=== PATIENT | female | born 1965 | race Caucasian/White ===

== ENCOUNTER 2016-05-28 17:35 | Inpatient (IN) ==
--- NOTE | 2016-05-28 17:47 | Emergency Department Note ---
Disposition Clinical Impression: Vomiting, Acute kidney injury, Anemia, Hypocalcemia, Hypomagnesemia, Obesity, Hyperkalemia, Thrombocytopenia, Pancytopenia Disposition: Admitted As Inpatient Referrals: NO,PCP [Non-Partnered Physician] - Forms: ED Satisfaction Letter General Adult HPI - General Chief complaint: ED Weakness Stated complaint: Dehydrated/hypotension Time Seen by Provider: 05/28/16 17:47 Source: patient Limitations: no limitations - History of Present Illness HPI Narrative: 50-year-old female reports emergency department concerned with recurrent vomiting and possible dehydration. The patient states she has had recurrent emesis for about a month. She has felt weak. The patient reports she had a gastric bypass many years ago. Her blood pressure was measured in the 70s systolic yesterday and down in the 40s diastolic per report. The patient is not fallen or had a cecil syncopal event. She denies any chest pain or shortness of breath no abdominal pain, the patient reports some bloody stool and emesis. The patient is currently not anticoagulated. There is no history of fever. No acute back pain reported. There has been no trouble moving the arms or legs independently. She reports she has a history of leg swelling. She has a known coronary stent, but denies diuretic therapy currently, she reports she had an element of renal failure and was told to discontinue her erratic. She reports her diabetes is now well controlled status post gastric bypass. There is no history of convulsion or confusion or difficulty moving the arms or legs independently. No dysarthria. The patient does describe significant anxiety. Pain Scale: 8 - Related Data Home Medications Medication Instructions Recorded Confirmed Actos 06/14/15 Allopurinol 06/14/15 Amitriptyline 06/14/15 Atenolol 06/14/15 Calcium + D Soft Chewable Tab 06/14/15 Iron Supplement 06/14/15 Lipitor 06/14/15 Lisinopril 06/14/15 Lyrica 06/14/15 Magnesium Citrate 06/14/15 06/14/15 Metformin 06/14/15 Nucynta 06/14/15 Requip 06/14/15 Vitamin C 06/14/15 Vitamin D 06/14/15 Previous Rx's Medication Instructions Recorded Ciprofloxacin [Cipro] 500 mg PO BID 7 Days 06/14/15 Phenazopyridine HCl [Pyridium] 200 mg PO TID 2 Days 06/14/15 Cyclobenzaprine [Flexeril] 10 mg PO TID #30 tablet 08/06/15 Ibuprofen [Motrin] 600 mg PO TID PRN #30 tab 08/06/15 Ciprofloxacin [Cipro] 500 mg PO BID #14 tablet 08/18/15 TraMADol [Ultram] 50 mg PO Q8HR PRN #10 tablet 08/18/15 Cephalexin [Keflex] 500 mg PO QID #40 capsule 01/06/16 Fluconazole [Diflucan] 50 mg PO ONCE #1 tablet 01/06/16 Olopatadine HCl [Patanol] 1 drop BOTH EYES BID PRN #1 unit 01/06/16 Phenazopyridine [Pyridium] 100 mg PO TID PRN #30 tablet 01/06/16 Promethazine/Dextromethorphan 5 ml PO Q4H PRN #120 ml 01/06/16 [Promethazine-Dm Syrup] Cefixime [Suprax] 400 mg PO DAILY #7 capsule 01/25/16 Ciprofloxacin HCl [Cipro] 500 mg PO BID #14 tablet 04/30/16 Allergies Allergy/AdvReac Type Severity Reaction Status Date / Time latex Allergy Rash Verified 12/10/14 16:45 Sulfa (Sulfonamide Allergy Anaphylaxis Verified 12/10/14 16:45 Antibiotics) All systems ED: reviewed and negative except as stated. Past Medical History - Past Medical History Medical history: Reports: diabetes, GERD, hypertension, other Surgical history: Reports: angioplasty/stent, appendectomy, , cholecystectomy, hysterectomy Psychiatric history: Reports: anxiety, depression - Social History Smoking Status: Never smoker Smokeless Tobacco Status: No Alcohol use: Reports: none Drug use: Reports: none Physical Exam - General Limitations: no limitations General appearance: alert - Head Head exam: atraumatic, normocephalic, normal inspection - Eye Eye exam: Present: normal appearance, PERRL, EOMI - ENT ENT exam: normal exam, normal oropharynx, mucous membranes moist, TM's normal bilaterally, normal external ear exam - Neck Neck exam: Present: normal inspection, full ROM, trachea midline - Chest Chest inspection: Present: symmetric chest wall rise. Absent: tenderness - Cardiovascular Cardiovascular exam: Present: regular rate, normal rhythm, normal heart sounds - Abdominal Exam Abdominal exam: Present: soft, Non-Tender, normal bowel sounds. Absent: tenderness, distention, guarding, rebound, rigidity, pulsatile mass - Extremities Exam Extremities exam: Present: normal inspection, full ROM, normal capillary refill , pedal edema. Absent: tenderness, joint swelling, calf tenderness - Expanded Lower Extremity Exam Upper leg exam: Present: full ROM Lower leg exam: Absent: Homans' sign Neurovascular/Tendon exam: Present: normal capillary refill. Absent: motor deficit, sensory deficit, tendon deficit, extremity cold to touch, pallor - Back Exam Back exam: Present: normal inspection, full ROM. Absent: tenderness, CVA tenderness (R), CVA tenderness (L), vertebral tenderness - Neurological Exam Neurological exam: Present: alert, oriented X3, CN II-XII intact. Absent: motor sensory deficit - Psychiatric Psychiatric exam: Present: normal affect, normal mood - Skin Skin exam: Present: warm, dry, intact, normal color. Absent: rash, cyanosis, diaphoresis, erythema, pallor, mottled Course Vital Signs Temperature 98.0 F 05/28/16 17:37 Pulse Rate 84 05/28/16 17:37 Respiratory Rate 16 05/28/16 17:37 Blood Pressure 120/80 05/28/16 17:37 O2 Sat by Pulse Oximetry 95 05/28/16 17:37 Temperature 98.0 F 05/28/16 17:37 Pulse Rate 80 05/28/16 19:35 Respiratory Rate 16 05/28/16 19:35 Blood Pressure 97/51 05/28/16 19:35 O2 Sat by Pulse Oximetry 94 05/28/16 19:35 Oxygen Delivery Oxygen Delivery Room Air Medical Decision Making - [facility] Narrative Medical decision making narrative: The patient is over 49, has had recurrent vomiting, is status post gastric bypass, she displays acute kidney injury as well as multiple electrolyte abnormalities. The patient also has significant anemia. She is weak and her blood pressure is low. She does not feel well enough to go home. Based on her age, presentation, hypotension, multiple comorbidities, acute kidney injury, multiple electrolyte abnormalities, I think it be appropriate to admit the patient to the hospital. I have consulted with the hospitalist on-call. - Lab Data Lab results reviewed: Yes I reviewed the patient's lab results. Result diagrams: 05/28/16 18:14 05/28/16 18:14 Lab Results 05/28/16 05/28/16 05/28/16 Range/Units 18:14 18:14 18:14 WBC 3.4 L (4.3-11.1) K/mcL RBC 2.41 L (3.82-4.97) M/mcL Hgb 8.0 L (11.5-15.4) g/dL Hct 25.4 L (35.3-44.9) % MCV 105.4 H (83.0-100.0) fL MCH 33.2 (28.0-33.3) pg MCHC 31.5 L (31.6-35.5) g/dL RDW 15.8 H (11.5-14.5) % Plt Count 104 L (140-400) K/mcL MPV 10.8 (9.4-12.4) fL Immature Gran % 0.3 (0-4) % Seg Neutrophils % 56.7 % Lymphocytes % 33.2 % Monocytes % 7.4 % Eosinophils % 1.5 % Basophils % 0.9 % Neutrophils # 1.9 (1.6-8.9) K/mcL Lymphocytes # 1.1 (0.6-4.6) K/mcL Monocytes # 0.3 (0.0-1.3) K/mcL Eosinophils # 0.1 (0.0-0.6) K/mcL Basophils # 0.0 (0.0-0.2) K/mcL Sodium 139 (136-145) mEq/L Potassium 4.8 H (3.5-4.5) mEq/L Chloride 111 H (98-109) mEq/L Carbon Dioxide 17 L (19-29) mEq/L BUN 40 H (7-20) mg/dL Creatinine 2.25 H (0.57-1.11) mg/dL Est GFR ( Amer) 28 L (> 60) Est GFR (Non-Af Amer) 23 L (> 60) BUN/Creatinine Ratio 18 (6-26) Glucose 75 (70-99) mg/dL Calculated Osmolality 296 (280-300) Lactic Acid 1.3 (0.5-2.2) mmol/L Calcium 7.5 L (8.6-10.8) mg/dL Phosphorus 5.2 H (2.3-4.7) mg/dL Magnesium 1.2 L (1.6-2.6) mg/dL Total Bilirubin (0.2-1.2) mg/dL Direct Bilirubin (0.0-0.5) mg/dL Indirect Bilirubin (0.0-1.2) mg/dL AST (5-34) Units/L ALT (0-55) Units/L Alkaline Phosphatase (38-126) Units/L Creatine Kinase 292 H (29-168) Units/L Troponin I (0-0.03) ng/mL C-Reactive Protein (Less than 5) mg/L B-Natriuretic Peptide (0-100) pg/mL Serum Total Protein (6.0-8.3) g/dL Albumin (3.5-5.0) g/dL Globulin (2.4-3.5) g/dL Albumin/Globulin Ratio (1.1-2.2) Lipase (8-78) Units/L TSH 1.879 (0.350-4.840) mcIU/mL 05/28/16 05/28/16 05/28/16 Range/Units 18:14 18:14 18:14 WBC (4.3-11.1) K/mcL RBC (3.82-4.97) M/mcL Hgb (11.5-15.4) g/dL Hct (35.3-44.9) % MCV (83.0-100.0) fL MCH (28.0-33.3) pg MCHC (31.6-35.5) g/dL RDW (11.5-14.5) % Plt Count (140-400) K/mcL MPV (9.4-12.4) fL Immature Gran % (0-4) % Seg Neutrophils % % Lymphocytes % % Monocytes % % Eosinophils % % Basophils % % Neutrophils # (1.6-8.9) K/mcL Lymphocytes # (0.6-4.6) K/mcL Monocytes # (0.0-1.3) K/mcL Eosinophils # (0.0-0.6) K/mcL Basophils # (0.0-0.2) K/mcL Sodium (136-145) mEq/L Potassium (3.5-4.5) mEq/L Chloride (98-109) mEq/L Carbon Dioxide (19-29) mEq/L BUN (7-20) mg/dL Creatinine (0.57-1.11) mg/dL Est GFR ( Amer) (> 60) Est GFR (Non-Af Amer) (> 60) BUN/Creatinine Ratio (6-26) Glucose (70-99) mg/dL Calculated Osmolality (280-300) Lactic Acid (0.5-2.2) mmol/L Calcium (8.6-10.8) mg/dL Phosphorus (2.3-4.7) mg/dL Magnesium (1.6-2.6) mg/dL Total Bilirubin 1.1 (0.2-1.2) mg/dL Direct Bilirubin 0.8 H (0.0-0.5) mg/dL Indirect Bilirubin 0.3 (0.0-1.2) mg/dL AST 38 H (5-34) Units/L ALT 22 (0-55) Units/L Alkaline Phosphatase 74 (38-126) Units/L Creatine Kinase (29-168) Units/L Troponin I 0.01 (0-0.03) ng/mL C-Reactive Protein 0 (Less than 5) mg/L B-Natriuretic Peptide (0-100) pg/mL Serum Total Protein 5.5 L (6.0-8.3) g/dL Albumin 2.4 L (3.5-5.0) g/dL Globulin 3.1 (2.4-3.5) g/dL Albumin/Globulin Ratio 0.8 L (1.1-2.2) Lipase 42 (8-78) Units/L TSH (0.350-4.840) mcIU/mL 05/28/16 Range/Units 18:14 WBC (4.3-11.1) K/mcL RBC (3.82-4.97) M/mcL Hgb (11.5-15.4) g/dL Hct (35.3-44.9) % MCV (83.0-100.0) fL MCH (28.0-33.3) pg MCHC (31.6-35.5) g/dL RDW (11.5-14.5) % Plt Count (140-400) K/mcL MPV (9.4-12.4) fL Immature Gran % (0-4) % Seg Neutrophils % % Lymphocytes % % Monocytes % % Eosinophils % % Basophils % % Neutrophils # (1.6-8.9) K/mcL Lymphocytes # (0.6-4.6) K/mcL Monocytes # (0.0-1.3) K/mcL Eosinophils # (0.0-0.6) K/mcL Basophils # (0.0-0.2) K/mcL Sodium (136-145) mEq/L Potassium (3.5-4.5) mEq/L Chloride (98-109) mEq/L Carbon Dioxide (19-29) mEq/L BUN (7-20) mg/dL Creatinine (0.57-1.11) mg/dL Est GFR ( Amer) (> 60) Est GFR (Non-Af Amer) (> 60) BUN/Creatinine Ratio (6-26) Glucose (70-99) mg/dL Calculated Osmolality (280-300) Lactic Acid (0.5-2.2) mmol/L Calcium (8.6-10.8) mg/dL Phosphorus (2.3-4.7) mg/dL Magnesium (1.6-2.6) mg/dL Total Bilirubin (0.2-1.2) mg/dL Direct Bilirubin (0.0-0.5) mg/dL Indirect Bilirubin (0.0-1.2) mg/dL AST (5-34) Units/L ALT (0-55) Units/L Alkaline Phosphatase (38-126) Units/L Creatine Kinase (29-168) Units/L Troponin I (0-0.03) ng/mL C-Reactive Protein (Less than 5) mg/L B-Natriuretic Peptide 184 H (0-100) pg/mL Serum Total Protein (6.0-8.3) g/dL Albumin (3.5-5.0) g/dL Globulin (2.4-3.5) g/dL Albumin/Globulin Ratio (1.1-2.2) Lipase (8-78) Units/L TSH (0.350-4.840) mcIU/mL - Radiology Data Radiology results reviewed: Yes I reviewed the patient's radiology results.
[2016-05-28] MEDS ORDERED: 0.9 % Sodium Chloride 1,000 ML IVC ONE (17:51)
[2016-05-28] MEDS ORDERED: Ondansetron 4 MG/2 ML VIAL IVP ONE (18:09)
[2016-05-28 18:25] LABS: Basophils % 0.9 %; Eosinophils # 0.1 K/mcL (0.0-0.6); Eosinophils % 1.5 %; Hematocrit 25.4 % (35.3-44.9); Immature Granulocytes % 0.3 % (0-4); Lymphocytes # 1.1 K/mcL (0.6-4.6); Lymphocytes % 33.2 %; Mean Corpuscular HGB Conc 31.5 g/dL (31.6-35.5); Mean Corpuscular Hemoglobin 33.2 pg (28.0-33.3); Mean Corpuscular Volume 105.4 fL (83.0-100.0); Mean Platelet Volume 10.8 fL (9.4-12.4); Monocytes # 0.3 K/mcL (0.0-1.3); Monocytes % 7.4 %; Neutrophils # 1.9 K/mcL (1.6-8.9); Platelet Count 104 K/mcL (140-400); Red Blood Count 2.41 M/mcL (3.82-4.97); Red Cell Distribution Width 15.8 % (11.5-14.5); Segmented Neutrophils % 56.7 %
[2016-05-28 18:41] LABS: C-Reactive Protein 0 mg/L (Less than 5); Calcium 7.5 mg/dL (8.6-10.8); Lipase 42 Units/L (8-78); Magnesium 1.2 mg/dL (1.6-2.6); Phosphorous 5.2 mg/dL (2.3-4.7); Potassium 4.8 mEq/L (3.5-4.5)
[2016-05-28 18:42] LABS: Albumin 2.4 g/dL (3.5-5.0); Albumin/Globulin Ratio 0.8 (1.1-2.2); Bilirubin,Direct 0.8 mg/dL (0.0-0.5); Bilirubin,Indirect 0.3 mg/dL (0.0-1.2); Bilirubin,Total 1.1 mg/dL (0.2-1.2); Globulin 3.1 g/dL (2.4-3.5); Total Protein 5.5 g/dL (6.0-8.3)
[2016-05-28 19:03] LABS: Thyroid Stimulating Hormone 1.879 mcIU/mL (0.350-4.840)
[2016-05-28 19:42] LABS: Bilirubin,Urine Negative (Negative); Blood,Urine Negative (Negative); Clarity,Urine Clear (Clear); Color,Urine Yellow (Yellow); Glucose,Urine (UA) Normal (Normal); Ketones,Urine Negative (Negative); Leukocyte Esterase,Urine Trace (Negative); Nitrite,Urine Negative (Negative); Protein,Urine Negative (Neg-Trace); Specific Gravity,Urine 1.008 (1.010-1.025); Urobilinogen,Urine Normal (Normal)
[2016-05-28 19:46] LABS: Bacteria,Urine None Seen per hpf (None-Few); Hyaline Casts,Urine None Seen per lpf (None-Few); RBC,Urine 0-3 per hpf (0-3); Squamous Epithelial Cell,Urine Many per lpf (None-Few); WBC,Urine 0-3 per hpf (0-3)
[2016-05-28] MEDS: Magnesium Sulfate 2 GM in D5% in Water 100 ML IVPB SCH (21:47)
--- NOTE | 2016-05-28 21:56 | Internal Med History&Physical ---
Date of Encounter: 05/28/16 Time of Encounter: 21:44 Assessment and Plan (1) Intractable nausea and vomiting Current visit: Yes Status: Acute Patient has been admitted due to intractable nausea and vomiting which have caused dehydration and acute kidney injury. The patient will need IV fluids and electrolyte supplementation. She also has hypomagnesemia. I have ordered 2 g of magnesium Will monitor electrolytes accordingly. Telemetry monitoring. She does not seem to be infected, no evidence of pneumonia or urinary tract infection, no flulike symptoms at this point. Will continue monitoring the patient closely. We will avoid nephrotoxic agents. GI prophylaxis. DVT prophylaxis will be provided. We will not use heparin for DVT prophylaxis in light of thrombocytopenia. Qualifiers: Vomiting type: unspecified Qualified Code(s): R11.2 - Nausea with vomiting , unspecified (2) Acute kidney injury Current visit: Yes Status: Acute We will continue with IV fluids. Avoid nephrotoxic agents. Monitor kidney function tests. Renal ultrasound. (3) Hypomagnesemia Current visit: Yes Status: Acute Magnesium will be supplemented the IV. Monitor magnesium levels in a.m. Telemetry monitoring. (4) Dehydration Current visit: Yes Status: Acute (5) Diabetes Current visit: No Status: Chronic Check fingerstick. Insulin therapy with a sliding scale. Check hemoglobin A1c. Hold metformin. Qualifiers: Diabetes mellitus type: type 2 Diabetes mellitus complication status: without complication Diabetes mellitus assisted insulin use: unspecified assisted insulin use status Qualified Code(s): E11.9 - Type 2 diabetes mellitus without complications (6) CAD (coronary artery disease) Current visit: No Status: Chronic History of coronary artery disease. No chest pain. Continue with aspirin. Qualifiers: Coronary Disease-Associated Artery/Lesion type: [place] artery [place] vs. transplanted heart: [place] heart Associated angina: without angina Qualified Code(s): I25.10 - Atherosclerotic heart disease of [place] coronary artery without angina pectoris (7) Obesity Current visit: Yes Status: Acute Qualifiers: Obesity type: unspecified obesity type Obesity severity: morbid Qualified Code(s): E66.01 - Morbid (severe) obesity due to excess calories (8) Pancytopenia Current visit: Yes Status: Acute Possibly secondary to vitamin B12 deficiency. We will obtain anemia workup. Supplemental vitamin B12. Internal Medicine - H&P: HPI Chief complaint: Vomiting Admitted From: Emergency Dept Plans for Post Hospital Care: Home History of present illness: Ms. Marquez is a 50 year old female patient with past medical history of obesity, status post gastric bypass, polyneuropathy, chronic pain syndrome, CAD, DM. She states that since her last month has been throwing up on a regular basis, has poor appetite and is unable to keep anything. She has a home health nurse who told her that her blood pressure has been consistently low. Eventually, she called her primary care physician yesterday and stated that she was very fatigued, and vomiting every day feeling weak and with a low blood pressure. She was afraid of going to the ER because she has fear of what they might do to her. The patient was advised by her primary care provider to seek medical attention in the emergency department. The patient presented to the emergency department and upon arrival her blood pressure was 120/80, heart rate was 84/m, respiratory rate was 15/m, temperature was 98, oxygen saturation was 95%. Initial blood work revealed a hemoglobin of 8.0, hematocrit 25.4, WBC count 3.4 , platelet count 104,000. Sodium 139, potassium 4.8, chloride 111, bicarbonate 17, BUNs 40, creatinine 2.25, glucose 75, lactic acid 1.3, magnesium 1.2. The patient to be function tests have increased compared to her baseline. She was admitted due to persistent nausea and vomiting along with acute kidney injury and hypomagnesemia. She was given some fluids in the emergency department. When compared with the patient she was otherwise not in distress, however she states that she has been having troubles with memory loss in the last couple of months. She denied fever, chills, syncope, shortness of breath, skin rash. She has been complaining of blurry vision intermittently. The patient was admitted for further management and workup. Past Med Surg Social Fam HX - Past Medical History Medical history: diabetes, GERD, hypertension, other Psychiatric history: anxiety, depression - Past Surgical History Surgical History: angioplasty/stent, appendectomy, , cholecystectomy, hysterectomy - Social History Smoking Status: Never smoker Smokeless Tobacco Status: No Alcohol use: none Drug use: none - Family History Mother Living Status: Still Living Hx Family Cardiac Disorders: Yes Hx Family Cancer: No Hx Family GI Disorders: Yes Hx Family Endocrine Disorder: No Internal Medicine - H&P: Meds Albuterol Sulfate [Proair Hfa] 1 - 2 puff IH Q6H PRN 05/28/16 [History] Buspirone HCl [Buspar] 7.5 mg PO BID 05/28/16 [History] Cyanocobalamin (B-12) [Vitamin B12] 1,000 mcg IM QMONTH 05/28/16 [History] Fluticasone Propionate Nasal [Flonase] 50 mcg NS BID 05/28/16 [History] Ipratropium/Albuterol Sulfate [Combivent Respimat Inhal [place]] 2 puff IH QID [History] Liraglutide [Victoza 2-Jovon] 1.2 mg SQ DAILY 05/28/16 [History] Metformin HCl [Metformin HCl ER] 1,000 mg PO DAILY 05/28/16 [History] Omeprazole [PriLOSEC] 20 mg PO DAILY 05/28/16 [History] Pregabalin [Lyrica] 150 mg PO TID 05/28/16 [History] Ropinirole [Requip] 1 mg PO HS 05/28/16 [History] Tapentadol HCl [Nucynta] 50 mg PO TID PRN 05/28/16 [History] Tizanidine HCl [Zanaflex] 4 mg PO TID PRN 05/28/16 [History] Allergies latex Allergy (Verified 12/10/14 16:45) Rash Sulfa (Sulfonamide Antibiotics) Allergy (Verified 12/10/14 16:45) Anaphylaxis All Systems PM: A 10-system review of systems was performed and is negative for pertinent findings except as documented above in the HPI. - Constitutional Constitutional: as per HPI, anorexia, lethargy, malaise, weakness, weight loss, no chills, no fever(s), no night sweats - EENT Eyes: as per HPI, blurry vision, no change in vision, no discharge, no pain, no photophobia Ears: as per HPI, no ear discharge, no ear pain, no tinnitus Nose, mouth and throat: as per HPI, no dysphagia, no nasal discharge, no neck pain, no sore throat - Breasts Breasts: as per HPI - Cardiovascular Cardiovascular ROS IM: as per HPI, no chest pain, no diaphoresis, no dyspnea, no lightheadedness, no palpitations, no syncope - Respiratory Respiratory: as per HPI, no cough, no dyspnea, no wheezing, no excessive phlegm production - Gastrointestinal Gastrointestinal: as per HPI, abdominal pain, vomiting, no diarrhea, no hematemesis, no hematochezia, no melena, no nausea - Genitourinary Genitourinary: as per HPI, no change in urinary stream, no dysuria, no flank pain, no hematuria Menstruation: as per HPI - Musculoskeletal Musculoskeletal ROS IM: as per HPI, no numbness, no tingling - Integumentary Integumentary IM: as per HPI, no rash, no unusual bruising - Neurological Neurological ROS: as per HPI, no confusion, no convulsions, no focal weakness, no numbness, no tingling, no tremor(s) - Psychiatric Psychiatric: as per HPI - Endocrine Endocrine IM: as per HPI - Hematologic/Lymphatic Hematologic/Lymphatic: as per HPI, no easy bruising - Allergic/Immunologic Allergic/Immunologic: as per HPI - Constitutional Vitals: Temp Pulse Resp BP Pulse Ox 98.1 F 85 16 91/56 100 05/28/16 20:34 05/28/16 20:10 05/28/16 21:36 05/28/16 21:36 05/28/16 20:10 General appearance: Present: cooperative, A&O X 3, morbidly obese, pleasant - Head Head exam: Present: atraumatic, normocephalic - Eye Eye exam: Present: PERRL, conjuntiva pink, sclera anicteric Pupils: Present: PERRL - Neck Neck exam general surgery: Present: supple, trachea midline. Absent: lymphadenopathy - Respiratory Respiratory exam: Present: CTAB. Absent: accessory muscle use, rales, rhonchi, wheezes - Cardiovascular Cardiovascular exam: Present: RRR, +S1, +S2. Absent: diastolic murmur, gallop, rubs, systolic murmur - GI/Abdominal GI/Abdominal exam: Present: normal bowel sounds, soft, no peritoneal signs. Absent: distended, tenderness - Extremities Exam Extremities exam: Present: pedal edema, warm, radial pulses palpable and symetrical. Absent: calf tenderness, cyanotic - Neurological Exam Neurological exam: Present: CN II-XII intact, oriented X3, no focal deficits. Absent: pronater drift, facial droop, speech deficit - Skin Skin exam: Present: dry, intact Internal Med - H&P Results - Labs CBC & Chem 7: 05/28/16 18:14 05/28/16 18:14
[2016-05-28] MEDS ORDERED: *HR* Morphine 2 MG/ML SYRINGE IVP PRN (22:10)
[2016-05-28] MEDS ORDERED: Acetaminophen 325 MG TABLET PO PRN (22:10)
[2016-05-28] MEDS ORDERED: Dextrose Gel 15 GM PO PRN ×2 (22:10)
[2016-05-28] MEDS ORDERED: D5% in Water 1,000 ML IVC PRN (22:10)
[2016-05-28] MEDS ORDERED: Naloxone 0.4 MG/ML INJ IVP PRN (22:10)
[2016-05-28] MEDS ORDERED: Ondansetron ODT 4 MG TAB.RAPDIS SL PRN (22:10)
[2016-05-28] MEDS ORDERED: *HR* Dextrose 50 % in Water (Syg) 50 ML SYRINGE IVP PRN (22:10)
[2016-05-28] MEDS ORDERED: *HR* OxyCODONE Immed Rel 5 MG TABLET PO PRN (22:10)
[2016-05-28] MEDS ORDERED: Thiamine (B-1) 100 MG in D5% in Water 50 ML IVPB ONE (22:18)
[2016-05-28] MEDS ORDERED: Cyanocobalamin (B-12) 1,000 MCG/ML VIAL IM ONE (22:18)
[2016-05-28 23:14] LABS: Creatinine,Urine 17 mg/dL; Microalbum/Creatinine Ratio,Ur 29 (0-30)
[2016-05-28 23:18] LABS: Microalbumin,Urine < 5 mg/L
[2016-05-29] MEDS: Insulin LISPRO 300 UNITS/3 ML VIAL SQ SCH ×4 (00:21→17:18)
[2016-05-29] MEDS: 0.9 % Sodium Chloride 1,000 ML IVC SCH ×2 (00:21→09:57)
[2016-05-29] MEDS: Magnesium Sulfate 2 GM in D5% in Water 100 ML IVPB SCH (00:23)
[2016-05-29] MEDS: rOPINIRole 1 MG TABLET PO SCH ×2 (01:19→22:21)
[2016-05-29] MEDS: Pregabalin 75 MG CAPSULE PO SCH ×4 (01:19→22:20)
[2016-05-29 05:55] LABS: Basophils % 0.6 %; Eosinophils # 0.1 K/mcL (0.0-0.6); Eosinophils % 2.3 %; Hematocrit 26.8 % (35.3-44.9); Hemoglobin 8.5 g/dL (11.5-15.4); Immature Granulocytes % 0.3 % (0-4); Lymphocytes # 1.4 K/mcL (0.6-4.6); Lymphocytes % 39.7 %; Mean Corpuscular HGB Conc 31.7 g/dL (31.6-35.5); Mean Corpuscular Hemoglobin 33.6 pg (28.0-33.3); Mean Corpuscular Volume 105.9 fL (83.0-100.0); Mean Platelet Volume 11.2 fL (9.4-12.4); Monocytes # 0.3 K/mcL (0.0-1.3); Monocytes % 7.3 %; Neutrophils # 1.7 K/mcL (1.6-8.9); Platelet Count 109 K/mcL (140-400); Red Blood Count 2.53 M/mcL (3.82-4.97); Red Cell Distribution Width 15.9 % (11.5-14.5); Segmented Neutrophils % 49.8 %
[2016-05-29] MEDS ORDERED: Famotidine 20 MG/2 ML VIAL IVP SCH (06:00)
[2016-05-29 06:05] LABS: Prothrombin Time 11.1 Seconds (9.4-12.1)
[2016-05-29 06:10] LABS: % Iron Saturation 53 % (15-50); Iron 99 mcg/dL (50-170); Transferrin 133 mg/dL (180-382)
[2016-05-29 06:12] LABS: Albumin 2.4 g/dL (3.5-5.0); Albumin/Globulin Ratio 0.8 (1.1-2.2); Bilirubin,Total 1.2 mg/dL (0.2-1.2); Calcium 7.4 mg/dL (8.6-10.8); Chol/HDL Ratio 1.7 (0-4.9); Globulin 3.2 g/dL (2.4-3.5); Magnesium 2.2 mg/dL (1.6-2.6); Phosphorous 4.3 mg/dL (2.3-4.7); Potassium 4.3 mEq/L (3.5-4.5); Total Protein 5.6 g/dL (6.0-8.3)
[2016-05-29 06:45] LABS: Folate 12.9 ng/mL (7.0-31.4)
[2016-05-29 06:46] LABS: Vitamin B12 > 2000 pg/mL (213-816)
[2016-05-29 07:00] LABS: HIV-1&2 Antibody & p24 Ag Nonreactive (Nonreactive); Hepatitis A Antibody IgM Nonreactive (Nonreactive); Hepatitis B Core IgM Nonreactive (Nonreactive); Hepatitis B Surface Antigen Nonreactive (Nonreactive); Hepatitis C Virus Antibody Nonreactive (Nonreactive)
[2016-05-29] MEDS ORDERED: Pregabalin 75 MG CAPSULE PO SCH (09:00)
[2016-05-29] MEDS: Thiamine (B-1) 100 MG TABLET PO SCH (09:56)
[2016-05-29] MEDS: Cyanocobalamin (B-12) 1,000 MCG TABLET PO SCH (09:56)
[2016-05-29] MEDS ORDERED: tiZANidine 4 MG TABLET PO PRN (10:23)
[2016-05-29 10:58] LABS: Potassium,Urine < 10.0 mEq/L
--- NOTE | 2016-05-29 15:50 | Internal Med Progress Note ---
Date of Encounter: 05/29/16 Time of Encounter: 15:48 - Assessment and plan (1) Intractable nausea and vomiting Current Visit: Yes Status: Acute Assessment and plan: subsided now, denies any nausea or vomiting. clinically better, continue IVF at 100 today. continue anti emetics. EGD done 2014 is normal, she says she has occasional flare ups when she takes meat which she thinks she cant take. await nurition consult recommendations she probably needs dietary advice and recommendations Qualifiers: Vomiting type: unspecified Qualified Code(s): R11.2 - Nausea with vomiting , unspecified (2) Iron deficiency anemia Current Visit: No Status: Chronic Qualifiers: Iron deficiency anemia type: unspecified iron deficiency Qualified Code(s) : D50.9 - Iron deficiency anemia, unspecified (3) Acute renal insufficiency Current Visit: No Status: Acute Assessment and plan: stable, will continue to monitor, has improved compared to yest. (4) Obesity Current Visit: Yes Status: Acute Qualifiers: Obesity type: unspecified obesity type Obesity severity: morbid Qualified Code(s): E66.01 - Morbid (severe) obesity due to excess calories (5) Pancytopenia Current Visit: Yes Status: Acute Assessment and plan: unclear etiology. has h/o iron def and is on b12 and iron supplements, possible 2/2 nutritional deficiency given gastric bypass. flora has macrocytic anemia and pancytopenia, Vit b12 is >2000,she is already on cyanocobalamin 1gram po daily. will continue the iron supplements as well, to monitor - Time Spent With Patient 25 - 35 minutes - Subjective Interval history: Patient seen at the bedside, reports much improvement in yesterday. Denies any nausea or vomiting today. She has remote history of gastric bypass with reversal, and regain of weight. She says that she does not tolerate any kind of meat which makes her nauseous. She had a history of EGD done 2 years ago which she reports to be normal. - Constitutional Vitals: Temp Pulse Resp BP Pulse Ox 98.4 F 83 16 115/72 99 05/29/16 10:50 05/29/16 10:50 05/29/16 10:50 05/29/16 10:50 05/29/16 10:50 General appearance: Present: cooperative, A&O X 3, morbidly obese, pleasant Exam: - Head Head exam: Present: atraumatic, normocephalic - Eye Eye exam: Present: PERRL, conjuntiva pink, sclera anicteric Pupils: Present: PERRL - Neck Neck exam general surgery: Present: supple, trachea midline. Absent: lymphadenopathy - Respiratory Respiratory exam: Present: CTAB. Absent: accessory muscle use, rales, rhonchi, wheezes - Cardiovascular Cardiovascular exam: Present: RRR, +S1, +S2. Absent: diastolic murmur, gallop, rubs, systolic murmur - GI/Abdominal GI/Abdominal exam: Present: normal bowel sounds, soft, no peritoneal signs. Absent: distended, tenderness - Extremities Exam Extremities exam: Present: pedal edema, warm, radial pulses palpable and symetrical. Absent: calf tenderness, cyanotic - Neurological Exam Neurological exam: Present: CN II-XII intact, oriented X3, no focal deficits. Absent: pronater drift, facial droop, speech deficit - Skin Skin exam: Present: dry, intact Internal Medicine: Result - Labs CBC & Chem 7: 05/29/16 05:39 05/29/16 05:39 Labs: Short CBC 05/29/16 Range/Units 05:39 WBC 3.4 L (4.3-11.1) K/mcL Hgb 8.5 L (11.5-15.4) g/dL Hct 26.8 L (35.3-44.9) % Plt Count 109 L (140-400) K/mcL Neutrophils # 1.7 (1.6-8.9) K/mcL BMP 05/29/16 05:39 Sodium 143 Potassium 4.3 Chloride 115 H Carbon Dioxide 21 BUN 36 H Creatinine 1.91 H Glucose 79 Calcium 7.4 L Liver Function 05/29/16 Range/Units 05:39 Total Bilirubin 1.2 (0.2-1.2) mg/dL AST 38 H (5-34) Units/L ALT 21 (0-55) Units/L Alkaline Phosphatase 73 (38-126) Units/L Albumin 2.4 L (3.5-5.0) g/dL - ABG Interpretation ABG results: PT/INR, D-dimer PT 11.1 Seconds (9.4-12.1) 05/29/16 05:39 - Impressions Impressions Retroperitoneum Ultrasound 05/28/16 22:16 IMPRESSION: Unremarkable ultrasound of the kidneys. D/ / Amrit Hernandez MD / Amrit Hernandez MD Interpreting Provider: Amrit Hernandez MD X-Ray 05/28/16 22:22 IMPRESSION: No evidence of bowel obstruction. Upper abdomen is partially excluded from view. D/ / 05/29/2016 07:13:32 Amrit Hernandez MD / albert Interpreting Provider: Amrit Hernandez MD Consult Discharge Plan - Plan Referrals: Irvin Barr MD [Primary Care Provider] -
[2016-05-29] MEDS ORDERED: traMADol 50 MG TABLET PO PRN (15:56)
[2016-05-29] MEDS ORDERED: 0.9 % Sodium Chloride 1,000 ML IVC ONE (16:39)
[2016-05-29] MEDS ORDERED: 0.9 % Sodium Chloride 1,000 ML IVC SCH (16:45)
[2016-05-29] MEDS ORDERED: rOPINIRole 1 MG TABLET PO SCH (21:00)
[2016-05-29] MEDS ORDERED: Dextrose Gel 15 GM PO PRN ×2 (22:44)
[2016-05-29] MEDS ORDERED: *HR* Dextrose 50 % in Water (Syg) 50 ML SYRINGE IVP PRN (22:44)
[2016-05-29] MEDS ORDERED: D5% in Water 1,000 ML IVC PRN (22:44)
[2016-05-30] MEDS: Thiamine (B-1) 100 MG TABLET PO SCH (07:49)
[2016-05-30] MEDS: Cyanocobalamin (B-12) 1,000 MCG TABLET PO SCH (07:49)
[2016-05-30] MEDS: Pregabalin 75 MG CAPSULE PO SCH ×3 (07:50→22:39)
[2016-05-30 08:23] LABS: Basophils % 0.3 %; Eosinophils # 0.1 K/mcL (0.0-0.6); Eosinophils % 1.6 %; Hematocrit 24.1 % (35.3-44.9); Hemoglobin 7.8 g/dL (11.5-15.4); Immature Granulocytes % 0.3 % (0-4); Lymphocytes # 1.3 K/mcL (0.6-4.6); Lymphocytes % 39.4 %; Mean Corpuscular HGB Conc 32.4 g/dL (31.6-35.5); Mean Corpuscular Hemoglobin 33.6 pg (28.0-33.3); Mean Corpuscular Volume 103.9 fL (83.0-100.0); Mean Platelet Volume 11.6 fL (9.4-12.4); Monocytes # 0.2 K/mcL (0.0-1.3); Neutrophils # 1.7 K/mcL (1.6-8.9); Red Blood Count 2.32 M/mcL (3.82-4.97); Red Cell Distribution Width 16.1 % (11.5-14.5); Segmented Neutrophils % 52.4 %
[2016-05-30 08:24] LABS: Platelet Count 92 K/mcL (140-400)
[2016-05-30 08:40] LABS: Calcium 7.5 mg/dL (8.6-10.8); Potassium 5.2 mEq/L (3.5-4.5)
[2016-05-30] MEDS: Insulin LISPRO 300 UNITS/3 ML VIAL SQ SCH ×3 (10:19→18:05)
--- NOTE | 2016-05-30 10:44 | Electrocardiograph Report ---
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
[2016-05-30] MEDS: Sennosides 8.6 MG TABLET PO SCH (11:40)
--- NOTE | 2016-05-30 16:48 | Internal Med Progress Note ---
Date of Encounter: 05/30/16 Time of Encounter: 16:46 - Assessment and plan (1) Intractable nausea and vomiting Current Visit: Yes Status: Acute Assessment and plan: subsided now, denies any nausea or vomiting. clinically better, will stop IVF today continue anti emetics. EGD done 2014 is normal, she says she has occasional flare ups when she takes meat which she thinks she cant take. await nurition consult recommendations she probably needs dietary advice and recommendations Qualifiers: Vomiting type: unspecified Qualified Code(s): R11.2 - Nausea with vomiting , unspecified (2) Iron deficiency anemia Current Visit: No Status: Chronic Assessment and plan: was told that she has iron deficiency, however non compliant with iron due to constipation. she has been started on iron and laxatives Qualifiers: Iron deficiency anemia type: unspecified iron deficiency Qualified Code(s) : D50.9 - Iron deficiency anemia, unspecified (3) Acute renal insufficiency Current Visit: No Status: Acute Assessment and plan: improved,will continue to monitor, possible pre renal 2/2 n/v she had. (4) Obesity Current Visit: Yes Status: Acute Qualifiers: Obesity type: unspecified obesity type Obesity severity: morbid Qualified Code(s): E66.01 - Morbid (severe) obesity due to excess calories (5) Pancytopenia Current Visit: Yes Status: Acute Assessment and plan: unclear etiology. has h/o iron def and is on b12 and iron supplements, possible 2/2 nutritional deficiency given gastric bypass. flora has macrocytic anemia and pancytopenia, Vit b12 is >2000,she is already on cyanocobalamin 1gram po daily. will continue the iron supplements as well, to monitor - Time Spent With Patient 25 - 35 minutes - Subjective Interval history: Patient seen at the bedside, reports much improvement in yesterday. Denies any nausea or vomiting today. She has remote history of gastric bypass with reversal, and regain of weight. She says that she does not tolerate any kind of meat which makes her nauseous. She had a history of EGD done 2 years ago which she reports to be normal. - Constitutional Vitals: Temp Pulse Resp BP Pulse Ox 98.0 F 76 16 103/57 100 05/30/16 15:17 05/30/16 15:17 05/30/16 15:17 05/30/16 15:17 05/30/16 15:17 General appearance: Present: cooperative, A&O X 3, morbidly obese, pleasant Exam: - Head Head exam: Present: atraumatic, normocephalic - Eye Eye exam: Present: PERRL, conjuntiva pink, sclera anicteric Pupils: Present: PERRL - Neck Neck exam general surgery: Present: supple, trachea midline. Absent: lymphadenopathy - Respiratory Respiratory exam: Present: CTAB. Absent: accessory muscle use, rales, rhonchi, wheezes - Cardiovascular Cardiovascular exam: Present: RRR, +S1, +S2. Absent: diastolic murmur, gallop, rubs, systolic murmur - GI/Abdominal GI/Abdominal exam: Present: normal bowel sounds, soft, no peritoneal signs. Absent: distended, tenderness - Extremities Exam Extremities exam: Present: pedal edema, warm, radial pulses palpable and symetrical. Absent: calf tenderness, cyanotic - Neurological Exam Neurological exam: Present: CN II-XII intact, oriented X3, no focal deficits. Absent: pronater drift, facial droop, speech deficit - Skin Skin exam: Present: dry, intact Internal Medicine: Result - Labs CBC & Chem 7: 05/30/16 08:14 05/30/16 08:14 Labs: Short CBC 05/30/16 Range/Units 08:14 WBC 3.2 L (4.3-11.1) K/mcL Hgb 7.8 L (11.5-15.4) g/dL Hct 24.1 L (35.3-44.9) % Plt Count 92 L (140-400) K/mcL Neutrophils # 1.7 (1.6-8.9) K/mcL BMP 05/30/16 08:14 Sodium 144 Potassium 5.2 H Chloride 119 H Carbon Dioxide 15 L BUN 25 H D Creatinine 1.22 H Glucose 90 Calcium 7.5 L - ABG Interpretation ABG results: PT/INR, D-dimer PT 11.1 Seconds (9.4-12.1) 05/29/16 05:39 - VTE Documentation of Mechanical Device: Intermittent pneumatic compression device Consult Discharge Plan - Plan Referrals: Irvin Barr MD [Primary Care Provider] -
[2016-05-30] MEDS: traMADol 50 MG TABLET PO PRN ×2 (18:04→22:40)
[2016-05-30] MEDS ORDERED: Insulin LISPRO 300 UNITS/3 ML VIAL SQ SCH (21:00)
[2016-05-30] MEDS: rOPINIRole 1 MG TABLET PO SCH (22:39)
[2016-05-31] MEDS: Insulin LISPRO 300 UNITS/3 ML VIAL SQ SCH ×2 (07:54→12:12)
[2016-05-31] MEDS: Thiamine (B-1) 100 MG TABLET PO SCH (08:35)
[2016-05-31] MEDS: Sennosides 8.6 MG TABLET PO SCH (08:35)
[2016-05-31] MEDS: Pregabalin 75 MG CAPSULE PO SCH ×2 (08:35→14:39)
[2016-05-31] MEDS: Cyanocobalamin (B-12) 1,000 MCG TABLET PO SCH (08:35)
[2016-05-31 11:35] VITALS: BP 118/75
--- NOTE | 2016-05-31 14:35 | Discharge Summary ---
Date of Encounter: 05/31/16 Time of Encounter: 14:20 - Discharge Diagnosis (1) Intractable nausea and vomiting Priority: Primary Status: Acute Qualifiers: Vomiting type: unspecified Qualified Code(s): R11.2 - Nausea with vomiting , unspecified (2) Iron deficiency anemia Priority: Secondary Status: Chronic Qualifiers: Iron deficiency anemia type: unspecified iron deficiency Qualified Code(s) : D50.9 - Iron deficiency anemia, unspecified (3) Acute renal insufficiency Priority: Primary Status: Acute (4) Obesity Priority: Secondary Status: Acute Qualifiers: Obesity type: unspecified obesity type Obesity severity: morbid Qualified Code(s): E66.01 - Morbid (severe) obesity due to excess calories (5) Pancytopenia Priority: Secondary Status: Acute - Discharge Medications Prescriptions: Sennosides/Docusate Sodium [Senna Plus] 1 each PO DAILY PRN #30 tablet PRN Reason: Constipation Home Medications: Albuterol Sulfate [Proair Hfa] 1 - 2 puff IH Q6H PRN 05/28/16 [History] Buspirone HCl [Buspar] 7.5 mg PO BID 05/28/16 [History] Cyanocobalamin (B-12) [Vitamin B12] 1,000 mcg IM QMONTH 05/28/16 [History] Fluticasone Propionate Nasal [Flonase] 50 mcg NS BID 05/28/16 [History] Ipratropium/Albuterol Sulfate [Combivent Respimat Inhal [place]] 2 puff IH QID [History] Liraglutide [Victoza 2-Jovon] 1.2 mg SQ DAILY 05/28/16 [History] Metformin HCl [Metformin HCl ER] 1,000 mg PO DAILY 05/28/16 [History] Omeprazole [PriLOSEC] 20 mg PO DAILY 05/28/16 [History] Pregabalin [Lyrica] 150 mg PO TID 05/28/16 [History] Ropinirole [Requip] 1 mg PO HS 05/28/16 [History] Tapentadol HCl [Nucynta] 50 mg PO TID PRN 05/28/16 [History] Tizanidine HCl [Zanaflex] 4 mg PO TID PRN 05/28/16 [History] Sennosides/Docusate Sodium [Senna Plus] 1 each PO DAILY PRN #30 tablet 05/31/16 [Rx] Allergies/Adverse Reactions: Allergies latex Allergy (Verified 12/10/14 16:45) Rash Sulfa (Sulfonamide Antibiotics) Allergy (Verified 12/10/14 16:45) Anaphylaxis Procedures/tests Complete & Pending: Procedures Performed prior 72 hours Category Date Time Status US retroperitoneal limited [US] Routine Exams 05/28/16 22:16 Completed Date of admission: 05/28/16 22:10 Primary care physician: Irvin Barr MD Consults: 05/28/16 23:02 Consult to Nutrition [CONS] Routine Comment: Consulting Provider: NUTRITION Reason for Dietary Consult: PO Supplementation Other:: hypoalbuminemia, post bariatric surgery, DM - Patient Status Disposition: Home, Self-Care Condition: Fair Functional capacity at discharge: independent ambulation Overall status at discharge: patient is back to baseline - Discharge Instructions Instructions: Anemia (GEN) Follow Up With: Genevieve Peter MD [Partnered Physician] - 06/21/16 9:00 am (please follow up as schedule... and Please arrive 15 minutes early) Irvin Barr MD [Primary Care Provider] - 06/08/16 1:00 pm (Please follow up as schedule with Sujey Byrd ) - Diet and Activity Activity: resume usual activities as tolerated Diet: advance to your usual diet Interval History: Ms. Marquez is a 50 year old female patient with past medical history of obesity, status post gastric bypass, polyneuropathy, chronic pain syndrome, CAD, DM and SLE> seh presented with n/v, fatigue and malaise. . The patient presented to the emergency department and upon arrival her blood pressure was 120/80, heart rate was 84/m, respiratory rate was 15/m, temperature was 98, oxygen saturation was 95%. Initial blood work revealed a hemoglobin of 8.0, hematocrit 25.4, WBC count 3.4, platelet count 104,000. Sodium 139, potassium 4.8, chloride 111, bicarbonate 17, BUNs 40, creatinine 2.25, glucose 75, lactic acid 1.3, magnesium 1.2. She was admitted due to persistent nausea and vomiting along with acute kidney injury and hypomagnesemia. She was given some fluids in the emergency department. She denied fever, chills, syncope, shortness of breath, skin rash. Her electrolytes has been replaced, she says she does not tolerate meat which makes her nauseous, nutrition was consulted and she was advised to take her multi vitamins as she is supposed to,advised some adjustments to her diet. her n/v/ subsided with supportive treatment. MANSI improved. she was noted to be pancytopenic with macrocytic anemia, which she says is chronic and is possible 2/2 nutritional deficiency. she is being dc in stable condition today and will give f/u with hematology for her pancytopenia. Hospital course: Ms. Marquez is a 50 year old female Time spent discussing smoking cessation with patient: more than 10 minutes - Time Spent with Patient Total time spent providing and/or coordinating discharge services: Greater than 30 minutes - Constitutional Vitals: Temp Pulse Resp BP Pulse Ox 97.9 F 92 18 118/75 100 05/31/16 11:34 05/31/16 11:34 05/31/16 11:34 05/31/16 11:34 05/31/16 07:12 General appearance: Present: cooperative, A&O X 3, morbidly obese, pleasant Exam: - Head Head exam: Present: atraumatic, normocephalic - Eye Eye exam: Present: PERRL, conjuntiva pink, sclera anicteric Pupils: Present: PERRL - Neck Neck exam general surgery: Present: supple, trachea midline. Absent: lymphadenopathy - Respiratory Respiratory exam: Present: CTAB. Absent: accessory muscle use, rales, rhonchi, wheezes - Cardiovascular Cardiovascular exam: Present: RRR, +S1, +S2. Absent: diastolic murmur, gallop, rubs, systolic murmur - GI/Abdominal GI/Abdominal exam: Present: normal bowel sounds, soft, no peritoneal signs. Absent: distended, tenderness - Extremities Exam Extremities exam: Present: pedal edema, warm, radial pulses palpable and symetrical. Absent: calf tenderness, cyanotic - Neurological Exam Neurological exam: Present: CN II-XII intact, oriented X3, no focal deficits. Absent: pronater drift, facial droop, speech deficit - Skin Skin exam: Present: dry, intact - VTE Documentation of Mechanical Device: Intermittent pneumatic compression device
--- NOTE | 2016-05-31 15:39 | Physician Discharge Referral ---
Home Health/Hosp Referral Info Transfer to: Home Health Attending Provider: yovana trevizo - Diagnosis (1) Intractable nausea and vomiting Status: Acute (2) Iron deficiency anemia Status: Chronic (3) Acute renal insufficiency Status: Acute (4) Obesity Status: Acute (5) Pancytopenia Status: Acute - Respiratory Orders Smoking Cessation: Smoking cessation has been advised. For more information, call the [employer] Tobacco Quit Line at 4-884-ZSSM-NOW. - Diet/Nutrition Diet/Nutrition Orders: Regular - Activity Activity Orders: Up ad humberto, Ambulate - Services Needed Following services are medically necessary services: Nursing, Home Health Aide - Transfer Medications Prescriptions: Sennosides/Docusate Sodium [Senna Plus] 1 each PO DAILY PRN #30 tablet PRN Reason: Constipation Home Medications: Albuterol Sulfate [Proair Hfa] 1 - 2 puff IH Q6H PRN 05/28/16 [History] Buspirone HCl [Buspar] 7.5 mg PO BID 05/28/16 [History] Cyanocobalamin (B-12) [Vitamin B12] 1,000 mcg IM QMONTH 05/28/16 [History] Fluticasone Propionate Nasal [Flonase] 50 mcg NS BID 05/28/16 [History] Ipratropium/Albuterol Sulfate [Combivent Respimat Inhal [place]] 2 puff IH QID [History] Liraglutide [Victoza 2-Jovon] 1.2 mg SQ DAILY 05/28/16 [History] Metformin HCl [Metformin HCl ER] 1,000 mg PO DAILY 05/28/16 [History] Omeprazole [PriLOSEC] 20 mg PO DAILY 05/28/16 [History] Pregabalin [Lyrica] 150 mg PO TID 05/28/16 [History] Ropinirole [Requip] 1 mg PO HS 05/28/16 [History] Tapentadol HCl [Nucynta] 50 mg PO TID PRN 05/28/16 [History] Tizanidine HCl [Zanaflex] 4 mg PO TID PRN 05/28/16 [History] Sennosides/Docusate Sodium [Senna Plus] 1 each PO DAILY PRN #30 tablet 05/31/16 [Rx] Allergies/Adverse Reactions: Allergies latex Allergy (Verified 12/10/14 16:45) Rash Sulfa (Sulfonamide Antibiotics) Allergy (Verified 12/10/14 16:45) Anaphylaxis Certification: Further, I certify that my clinical findings support that this patient is homebound (i.e. absences from home require considerable and taxing effort and are for medical reasons or cheondoism services or infrequently or short duration when for other reasons) because: Homebound Reason: Patient requires assistance of a person or device to safely leave home Attestation: My signature below is to certify that this patient is under my care and that I, or nurse practitioner, or a physician's assistant controller working with me, has a face-to -face encounter with this patient.
[2016-06-01 07:23] LABS: Zinc 47 ug/dL (60-120)
[2016-06-02 08:16] LABS: Vitamin B1 (Thiamine) Whole Bl 167 nmol/L (70-180)
== END 2016-05-31 15:35 | disposition home or self-care (01) | DRG 683 ==
LOC: 2ANU 17:35 → EMEROO 17:35 → 2ANU 22:16
PROVIDERS: ADMIT Internal Medicine; ATTEND Internal Medicine Endocrinology, Diabetes & Metabolism

== ENCOUNTER 2018-08-06 22:46 | Observation (INO) ==
--- NOTE | 2018-08-06 23:46 | Emergency Department Note ---
Disposition Clinical Impression: MANSI (acute kidney injury) Chest pain Qualifiers: Chest pain type: unspecified Qualified Code(s): R07.9 - Chest pain, unspecified Disposition: Admitted As Inpatient Condition: Good Referrals: Irvin Barr MD [Primary Care Provider] - Forms: ED Satisfaction Letter Time of Disposition: 01:14 Chest Pain HPI - General Chief Complaint: ED Chest Pain Stated Complaint: chest pain Time Seen by Provider: 08/06/18 23:39 Source: patient Limitations: no limitations Vital Signs Reviewed: Yes Nursing Notes Reviewed: Yes - History of Present Illness HPI Narrative: Patient is a 53-year-old female presenting with chest pain to the ER. Patient has history of CAD status post stenting 1 in 2005, hypertension and hyperlipidemia as well as diabetes mellitus type 2. Patient states that she is been having intermittent chest pain for the past 6 days, she states that the episodes last for a total of 30 minutes, located in the left chest and radiates into the back, she states that this is increased during stressful situations. No change with exertion. She does have associated shortness of breath with episodes of diaphoresis as well. No vomiting. Occasionally will have nausea. On arrival here to the ER, she states that she is no longer having chest pain. No abdominal pain, lower leg swelling or change in mentation. No focal weakness, numbness or tingling. She states this feels very similar to when she had her heart attack in 2005. Severity scale (1-10): 6 - Related Data Home Medications Medication Instructions Recorded Confirmed Albuterol Sulfate [Proair Hfa] 1 - 2 puff IH Q6H PRN 05/28/16 06/28/16 Buspirone HCl [Buspar] 7.5 mg PO BID 05/28/16 06/28/16 Cyanocobalamin (B-12) [Vitamin B12] 1,000 mcg IM QMONTH 05/28/16 06/28/16 Fluticasone Propionate Nasal 50 mcg NS BID 05/28/16 06/28/16 [Flonase] Ipratropium/Albuterol Sulfate 2 puff IH QID 05/28/16 06/28/16 [Combivent Respimat Inhal [place]] Liraglutide [Victoza 2-Jovon] 1.2 mg SQ DAILY 05/28/16 06/28/16 Metformin HCl [Metformin ER 1,000 mg PO DAILY 05/28/16 06/28/16 Gastric] Omeprazole [PriLOSEC] 20 mg PO DAILY 05/28/16 06/28/16 Pregabalin [Lyrica] 150 mg PO TID 05/28/16 06/28/16 Tapentadol HCl [Nucynta] 50 mg PO TID PRN 05/28/16 06/28/16 Tizanidine HCl [Zanaflex] 4 mg PO TID PRN 05/28/16 06/28/16 rOPINIRole [Requip] 1 mg PO HS 05/28/16 06/28/16 Calcium Carbonate/Vitamin D3 2 each PO DAILY 06/15/16 06/28/16 [Calcium 600 + Vit D Softgel] Cholecalciferol (Vitamin D3) 2,000 unit PO DAILY 06/15/16 06/28/16 [Vitamin D3] Cyanocobalamin (Vitamin B-12) 5,000 mcg PO DAILY 06/15/16 06/28/16 [Vitamin B12] Lactobacillus Acidophilus 1 each PO DAILY 06/15/16 06/28/16 [Probiotic Acidophilus] Magnesium Oxide [Magnesium] 500 mg PO DAILY 06/15/16 06/28/16 Atenolol [Tenormin] 25 mg PO DAILY 06/24/16 06/28/16 Lisinopril 2.5 mg PO DAILY 06/24/16 06/28/16 Previous Rx's Medication Instructions Recorded Sennosides/Docusate Sodium [Senna 1 each PO DAILY PRN #30 tablet 05/31/16 Plus] Meclizine [Antivert] 25 mg PO TID #21 tablet 12/19/16 cephALEXin [Keflex] 500 mg PO QID #40 capsule 11/21/17 methylPREDNISolone [Medrol] 4 mg PO TAPER #21 tablet 11/21/17 Allergies Allergy/AdvReac Type Severity Reaction Status Date / Time latex Allergy Rash Verified 06/17/18 22:19 Sulfa (Sulfonamide Allergy Anaphylaxis Verified 06/17/18 22:19 Antibiotics) tramadol AdvReac Gastrointestinal Verified 06/17/18 22:19 Upset Review of Systems: In addition to that documented in the HPI above, the additional ROS was obtained: General: Denies fever. Denies chills. Denies weight loss. Denies behavioral change. Eyes: Denies visual changes. ENT: Denies nasal congestion. Denies sore throat. Denies hearing change. Cardio: Affirms chest pain. Denies palpitations. Respiratory: Denies cough. Affirms shortness of breath. Denies wheezing. GI: Affirms nausea, Denies vomiting, or diarrhea. Denies hematochezia denies melena. Denies abdominal pain. : Denies dysuria, hematuria, or urinary retention MSK: Denies back pain. Denies joint swelling. Neuro: Denies slurred speech. Denies numbness or tingling. Denies focal weakness. Denies headache. Denies loss of consciousness. Psych: Denies mood changes. Chest Pain PMH - Past Medical History Medical history: Reports: COPD, coronary artery disease, diabetes Surgical history: Reports: angioplasty/stent, appendectomy, , cholecystectomy, herniorrhaphy, hysterectomy Psychiatric history: Reports: anxiety, depression - Social History Smoking Status: Never smoker Alcohol use: Reports: occasionally Drug use: Reports: none Physical Exam General: Conversant. No apparent distress. Follow commands. Appears stated age. Neck: No JVD. Trachea midline. Neck supple. Eyes: PERRL. No scleral icterus. HENT: Normocephalic and atraumatic. Moist mucus membranes. Cardiovascular: Regular rate and rhythm. Normal S1 and S2. No murmurs appreciated. Normal capillary refill. Extremities well perfused with 2+ distal pulses bilaterally. No edema. Pulmonary: Normal and equal breath sounds bilaterally, anteriorly and posteriorl y. No wheezes, rales, or rhonchi. Not in respiratory distress. Speaks in full sentences. Abdomen: Soft, nondistended, without tenderness. No bruits or masses. No guarding or rebound. Neuro: Alert and oriented x3. No slurred speech. No focal deficits noted. Skin: No rashes noted on visualized skin. Musculoskeletal: No bony abnormalities visualized. Moves all extremities. Psych: Normal mood. Pleasant. Makes appropriate eye contact. - General Limitations: no limitations General appearance: alert, in no apparent distress Course Vital Signs Temperature 97.8 F 08/06/18 22:51 Pulse Rate 105 08/06/18 22:51 Respiratory Rate 18 08/06/18 22:51 Blood Pressure 157/103 08/06/18 22:51 O2 Sat by Pulse Oximetry 97 08/06/18 22:51 Temperature 97.8 F 08/06/18 22:51 Pulse Rate 86 08/07/18 01:09 Respiratory Rate 20 08/07/18 01:09 Blood Pressure 168/93 08/07/18 01:09 O2 Sat by Pulse Oximetry 99 08/07/18 01:09 Oxygen Delivery Oxygen Delivery Room Air Chest Pain - MDM Narrative Medical decision making narrative: Patient is a 53-year-old female presenting with chest pain. Patient with history of CAD status post stent in 2005, diabetes, hypertension and hyperlip idemia. On arrival, patient has several vital signs and is in no acute distress. Patient does have multiple episodes of chest pain lasting a few minutes but EKG performed during these episodes, withacute ischemic changes. BMP shows slight elevated serum creatinine, patient was given 1 L normal saline bolus. CBC and troponin are all within normal limits. Aspirin was given. Patient was not given nitroglycerin, as pain resolved on its own. EKG shows no acute ischemic changes, continued right bundle branch block from previous. Patient does have a heart score of 5. At this point in time, given patient's significant history of cardiac disease in the past, as well as concerning story, feels the patient would benefit with admission for ACS rule out. Patient agrees with disposition at this point in time. Patient will be admitted and is remained stable here in the ER. - Medical Records Medical records reviewed: Yes I reviewed the patient's medical records. - Lab Data Lab results reviewed: Yes I reviewed the patient's lab results. Result diagrams: 08/06/18 23:17 08/06/18 23:17 Lab Results 08/06/18 08/06/18 Range/Units 23:17 23:17 WBC 7.8 (4.3-11.1) K/mcL RBC 3.76 L (3.82-4.97) M/mcL Hgb 11.7 (11.5-15.4) g/dL Hct 36.0 (35.3-44.9) % MCV 95.7 (83.0-100.0) fL MCH 31.1 (28.0-33.3) pg MCHC 32.5 (31.6-35.5) g/dL RDW 12.0 (11.5-14.5) % Plt Count 179 (140-400) K/mcL MPV 9.9 (9.4-12.4) fL Immature Gran % 0.6 (0-4) % Seg Neutrophils % 68.2 % Lymphocytes % 24.2 % Monocytes % 6.6 % Eosinophils % 0.0 % Basophils % 0.4 % Neutrophils # 5.3 (1.6-8.9) K/mcL Lymphocytes # 1.9 (0.6-4.6) K/mcL Monocytes # 0.5 (0.0-1.3) K/mcL Eosinophils # 0.0 (0.0-0.6) K/mcL Basophils # 0.0 (0.0-0.2) K/mcL Sodium 139 (136-145) mEq/L Potassium 4.2 (3.5-5.1) mEq/L Chloride 104 (98-107) mEq/L Carbon Dioxide 26 (23-29) mEq/L BUN 22 H (6-20) mg/dL Creatinine 1.22 H (0.60-1.20) mg/dL Est GFR ( Amer) 56 L (> 60) Est GFR (Non-Af Amer) 46 L (> 60) BUN/Creatinine Ratio 18 (6-26) Glucose 117 H (70-105) mg/dL Calculated Osmolality 292 (280-300) Calcium 9.6 (8.6-10.3) mg/dL Total Bilirubin 0.6 (0.3-1.0) mg/dL Direct Bilirubin 0.1 (0.0-0.2) mg/dL Indirect Bilirubin 0.5 (0.0-1.2) mg/dL AST 18 (13-39) Units/L ALT 14 (7-52) Units/L Alkaline Phosphatase 136 H (34-104) Units/L Troponin I < 0.03 (< 0.04) ng/mL Serum Total Protein 6.9 (6.4-8.9) g/dL Albumin 4.1 (3.5-5.7) g/dL Globulin 2.8 (2.4-3.5) g/dL Albumin/Globulin Ratio 1.5 (1.1-2.2) Lipase 64 (11-82) Units/L - Radiology Data Radiology results reviewed: Yes I reviewed the patient's radiology results. Chest X-Ray 08/06/18 23:42 IMPRESSION: Stable negative chest. D/ / Mikala Campbell MD / Mikala Campbell MD Interpreting Provider: Mikala Campbell MD - EKG Data EKG attestation: Yes I reviewed and interpreted this EKG. EKG results narrative: EKG on arrival at 2259 with ventricular rate of 94, regular rhythm, normal axis, there is right bundle branch block, with no ST segment elevation or depression. No T-wave changes. EKG performed at 0013 as patient was having further chest pain, patient co ntinues to have sinus rhythm with ventricular rate of 83, with right bundle branch block, no change in EKG from previous. Heart Score - Score History: Moderately Suspicious EKG: Non Specific repolarisation Disturbance Age: 45-65 Risk Factors: Equal/Greater than 3 risk factor or history of atherosclerotic disease Troponin: Less than normal limit HEART Score Total: 5 S.B.A.R. - S.B.A.Olegario Situation: Demographics, MOA Background: Presenting Complaint, Relevant PMH, Meds, & Allergies Assessment: Vital Signs, Course and respsone to treatment, Exam Concerns, Patient/Family Expectation, Pertinant Lab Results, Outstanding Labs Recommendation: Barrier(s) to disposition, Recommendation based on pending studies, treatments, or consults S.B.A.RRachel Report Given to: Dr. Antoni Duenas Repor Time: 01:53 (accepted)
[2018-08-07 00:05] LABS: Alanine Aminotransferase 14 Units/L (7-52); Albumin 4.1 g/dL (3.5-5.7); Albumin/Globulin Ratio 1.5 (1.1-2.2); Alkaline Phosphatase 136 Units/L (34-104); Aspartate Amino Transferase 18 Units/L (13-39); BUN/Creatinine Ratio 18 (6-26); Bilirubin,Direct 0.1 mg/dL (0.0-0.2); Bilirubin,Indirect 0.5 mg/dL (0.0-1.2); Bilirubin,Total 0.6 mg/dL (0.3-1.0); Blood Urea Nitrogen 22 mg/dL (6-20); Calcium 9.6 mg/dL (8.6-10.3); Carbon Dioxide 26 mEq/L (23-29); Chloride 104 mEq/L (98-107); Globulin 2.8 g/dL (2.4-3.5); Glucose 117 mg/dL (70-105); Lipase 64 Units/L (11-82); Osmolality,Calculated 292 (280-300); Potassium 4.2 mEq/L (3.5-5.1); Sodium 139 mEq/L (136-145); Total Protein 6.9 g/dL (6.4-8.9); eGFR For African Americans 56 (> 60); eGFR For Non-African Americans 46 (> 60)
[2018-08-07 00:06] LABS: Troponin I < 0.03 ng/mL (< 0.04)
[2018-08-07 00:22] LABS: Basophils % 0.4 %; Hemoglobin 11.7 g/dL (11.5-15.4); Immature Granulocytes % 0.6 % (0-4); Lymphocytes # 1.9 K/mcL (0.6-4.6); Lymphocytes % 24.2 %; Mean Corpuscular HGB Conc 32.5 g/dL (31.6-35.5); Mean Corpuscular Hemoglobin 31.1 pg (28.0-33.3); Mean Corpuscular Volume 95.7 fL (83.0-100.0); Mean Platelet Volume 9.9 fL (9.4-12.4); Monocytes # 0.5 K/mcL (0.0-1.3); Monocytes % 6.6 %; Neutrophils # 5.3 K/mcL (1.6-8.9); Platelet Count 179 K/mcL (140-400); Red Blood Count 3.76 M/mcL (3.82-4.97); Segmented Neutrophils % 68.2 %; White Blood Count 7.8 K/mcL (4.3-11.1)
[2018-08-07] MEDS ORDERED: 0.9 % Sodium Chloride 1,000 ML IVC ONE (00:54)
[2018-08-07] MEDS ORDERED: Aspirin 81 MG TAB.CHEW PO ONE (01:12)
--- NOTE | 2018-08-07 03:00 | Emergency Department Note ---
Disposition Clinical Impression: MANSI (acute kidney injury) Chest pain Qualifiers: Chest pain type: unspecified Qualified Code(s): R07.9 - Chest pain, unspecified Disposition: Admitted As Inpatient Condition: Good Time of Disposition: 01:14 General Adult HPI - General Chief complaint: ED Chest Pain Stated complaint: chest pain Time Seen by Provider: 08/06/18 23:39 Source: patient Limitations: no limitations Nursing Notes Reviewed: Yes Vital Signs Reviewed: Yes - History of Present Illness Pain Scale: 0 - Related Data Home Medications Medication Instructions Recorded Confirmed Fluticasone Propionate Nasal 50 mcg NS BID 05/28/16 08/07/18 [Flonase] Omeprazole [PriLOSEC] 20 mg PO DAILY 05/28/16 08/07/18 Pregabalin [Lyrica] 150 mg PO TID 05/28/16 08/07/18 Tapentadol HCl [Nucynta] 50 mg PO TID PRN 05/28/16 08/07/18 rOPINIRole [Requip] 1 mg PO HS 05/28/16 08/07/18 Cyanocobalamin (Vitamin B-12) 2,000 mcg PO DAILY 06/15/16 08/07/18 [Vitamin B12] Lisinopril 2.5 mg PO DAILY 06/24/16 08/07/18 Atorvastatin Calcium [Lipitor] 80 mg PO HS 08/07/18 08/07/18 Sucralfate [Carafate] 1 gm PO QIDAC 08/07/18 08/07/18 Allergies Allergy/AdvReac Type Severity Reaction Status Date / Time latex Allergy Rash Verified 06/17/18 22:19 Sulfa (Sulfonamide Allergy Anaphylaxis Verified 06/17/18 22:19 Antibiotics) tramadol AdvReac Gastrointestinal Verified 06/17/18 22:19 Upset Past Medical History - Past Medical History Medical history: Reports: COPD, coronary artery disease, diabetes Surgical history: Reports: angioplasty/stent, appendectomy, , cholecystectomy, herniorrhaphy, hysterectomy Psychiatric history: Reports: anxiety, depression - Social History Smoking Status: Never smoker Smokeless Tobacco Status: No Alcohol use: Reports: occasionally Drug use: Reports: none Physical Exam - General Limitations: no limitations General appearance: alert, in no apparent distress Course Vital Signs Temperature 97.8 F 08/06/18 22:51 Pulse Rate 105 08/06/18 22:51 Respiratory Rate 18 08/06/18 22:51 Blood Pressure 157/103 08/06/18 22:51 O2 Sat by Pulse Oximetry 97 08/06/18 22:51 Temperature 98.0 F 08/07/18 06:33 Pulse Rate 75 08/07/18 06:33 Respiratory Rate 16 08/07/18 06:33 Blood Pressure 153/89 08/07/18 06:33 O2 Sat by Pulse Oximetry 98 08/07/18 06:33 Oxygen Delivery Oxygen Delivery Room Air Medical Decision Making - Medical Records Medical records reviewed: Yes I reviewed the patient's medical records. - Lab Data Lab results reviewed: Yes I reviewed the patient's lab results. Result diagrams: 08/06/18 23:17 08/07/18 05:18 Lab Results 08/06/18 08/06/18 Range/Units 23:17 23:17 WBC 7.8 (4.3-11.1) K/mcL RBC 3.76 L (3.82-4.97) M/mcL Hgb 11.7 (11.5-15.4) g/dL Hct 36.0 (35.3-44.9) % MCV 95.7 (83.0-100.0) fL MCH 31.1 (28.0-33.3) pg MCHC 32.5 (31.6-35.5) g/dL RDW 12.0 (11.5-14.5) % Plt Count 179 (140-400) K/mcL MPV 9.9 (9.4-12.4) fL Immature Gran % 0.6 (0-4) % Seg Neutrophils % 68.2 % Lymphocytes % 24.2 % Monocytes % 6.6 % Eosinophils % 0.0 % Basophils % 0.4 % Neutrophils # 5.3 (1.6-8.9) K/mcL Lymphocytes # 1.9 (0.6-4.6) K/mcL Monocytes # 0.5 (0.0-1.3) K/mcL Eosinophils # 0.0 (0.0-0.6) K/mcL Basophils # 0.0 (0.0-0.2) K/mcL Sodium 139 (136-145) mEq/L Potassium 4.2 (3.5-5.1) mEq/L Chloride 104 (98-107) mEq/L Carbon Dioxide 26 (23-29) mEq/L BUN 22 H (6-20) mg/dL Creatinine 1.22 H (0.60-1.20) mg/dL Est GFR ( Amer) 56 L (> 60) Est GFR (Non-Af Amer) 46 L (> 60) BUN/Creatinine Ratio 18 (6-26) Glucose 117 H (70-105) mg/dL Calculated Osmolality 292 (280-300) Calcium 9.6 (8.6-10.3) mg/dL Total Bilirubin 0.6 (0.3-1.0) mg/dL Direct Bilirubin 0.1 (0.0-0.2) mg/dL Indirect Bilirubin 0.5 (0.0-1.2) mg/dL AST 18 (13-39) Units/L ALT 14 (7-52) Units/L Alkaline Phosphatase 136 H (34-104) Units/L Troponin I < 0.03 (< 0.04) ng/mL Serum Total Protein 6.9 (6.4-8.9) g/dL Albumin 4.1 (3.5-5.7) g/dL Globulin 2.8 (2.4-3.5) g/dL Albumin/Globulin Ratio 1.5 (1.1-2.2) Lipase 64 (11-82) Units/L - Radiology Data Radiology results reviewed: Yes I reviewed the patient's radiology results. Chest X-Ray 08/06/18 23:42 IMPRESSION: Stable negative chest. D/ / Mikala Campbell MD / Mikala Campbell MD Interpreting Provider: Mikala Campbell MD - EKG Data EKG #1 EKG attestation: Yes I reviewed and interpreted this EKG. EKG results narrative: EKG shows a sinus rhythm with short AK of 117. Ventricular rate of 94. Right bundle branch block. No acute ischemic changes. No arrhythmia or ectopy. No significant change from prior EKG dated 08/04/2018. Attestation Statement - Attestation Attestation: I, Wes Iverson MD, personally evaluated this patient and discussed their management with the resident physician. I reviewed the resident's note and agree with the documented findings, medical decision making, and plan of care. I personally supervised and was present for the baumann/critical portions of the following procedures completed by the resident: EKG interpretation. 53-year-old female presents to the emergency department with a complaint of having intermittent episodes of left-sided chest pain over about the past week. Some nausea and shortness of breath associated with the pain. Some mild diaphoresis. No pain at present. Patient does have a history of hypertension and hyperlipidemia. She had an OR in the past and has a coronary stent. On examination patient is a well-developed well-nourished well-appearing female in no acute distress. She is alert and oriented 3. There is no cyanosis or diaphoresis. Breath sounds are clear and equal bilaterally. Heart regular rate and rhythm. Abdomen soft and nontender with normal bowel sounds. EKG shows a sinus rhythm with short AK of 117. Ventricular rate of 94. Right bundle branch block. No acute ischemic changes. No arrhythmia or ectopy. No significant change from prior EKG dated 08/04/2018. Chest x-ray negative. Labs reviewed. Troponin negative. The hospitalist, Dr. Corrales, was consulted and accepted admission of the patient.
[2018-08-07] MEDS ORDERED: Naloxone 0.4 MG/ML INJ IVP PRN (03:10)
[2018-08-07] MEDS ORDERED: Nitroglycerin 0.4 MG TAB.SUBL SL PRN (03:12)
[2018-08-07] MEDS ORDERED: TAPENTADOL HCL 50 MG PO PRN (03:13)
--- NOTE | 2018-08-07 04:29 | Internal Med History&Physical ---
Date of Encounter: 08/07/18 Time of Encounter: 04:29 Internal Medicine - H&P: HPI Chief complaint: Chest Pain History of present illness: Ms. Marquez is a 53 year old female with past medical history of obesity, status post gastric bypass, polyneuropathy, chronic pain syndrome, CAD status post PCI with stent n 2005, and DM who presented to the ED with complaints of left-sided chest pain. Patient reports she has been having chest pain since Tuesday described as sharp, left-sided and radiating to her back. Pain is about 8 out of 10 in intensity and lasts for approximately 10 minutes. Associated symptoms include lightheadedness and shortness of breath. Denies any nausea. No reports of recent illness. Patient states that she has noted with anxiety typically brings it on and when she tries to calm herself down and take deep breaths, symptoms typically resolve. Patient has had [place] before with stent placement. She reports that her current presentation is different from when she had her WA. Patient does report she has been under some stress lately. She does not smoke. Drinks wine on occasion. Denies drug use. Significant family history of coronary artery disease in her father. On arrival patient was mildly hypertensive with initial blood pressure 157/103 and tachycardic with a heart rate of 105. Patient was otherwise afebrile. Laboratory workup was relatively unremarkable including a negative troponin. Her creatinine was mildly elevated at 1.22. EKG was obtained which showed normal sinus rhythm with a heart rate of 83, right bundle branch block and no evidence of T-wave or ST abnormalities. Chest x-ray was unremarkable. Patient admitted for ACS rule out. Patient is full code. 2 Past Med Surg Social Fam HX - Past Medical History Medical history: COPD, coronary artery disease, diabetes Additional medical history: Lupus, chronic pain, RLS, Gout Psychiatric history: anxiety, depression - Past Surgical History Surgical History: cholecystectomy Additional surgical history: gastric bypass - Social History Smoking Status: Never smoker Smokeless Tobacco Status: No Alcohol use: occasionally Drug use: none - Family History Mother Living Status: Still Living Hx Family Cardiac Disorders: Yes Hx Family Cancer: No Hx Family GI Disorders: Yes Hx Family Endocrine Disorder: No Internal Medicine - H&P: Meds Fluticasone Propionate Nasal [Flonase] 50 mcg NS BID 05/28/16 [History] Omeprazole [PriLOSEC] 20 mg PO DAILY 05/28/16 [History] Pregabalin [Lyrica] 150 mg PO TID 05/28/16 [History] Tapentadol HCl [Nucynta] 50 mg PO TID PRN 05/28/16 [History] rOPINIRole [Requip] 1 mg PO HS 05/28/16 [History] Cyanocobalamin (Vitamin B-12) [Vitamin B12] 2,000 mcg PO DAILY 06/15/16 [History] Lisinopril 2.5 mg PO DAILY 06/24/16 [History] Atorvastatin Calcium [Lipitor] 80 mg PO HS 08/07/18 [History] Sucralfate [Carafate] 1 gm PO QIDAC 08/07/18 [History] Allergy/AdvReac Type Severity Reaction Status Date / Time latex Allergy Rash Verified 06/17/18 22:19 Sulfa (Sulfonamide Allergy Anaphylaxis Verified 06/17/18 22:19 Antibiotics) tramadol AdvReac Gastrointestinal Verified 06/17/18 22:19 Upset All Systems PM: A 10-system review of systems was performed and is negative for pertinent findings except as documented above in the HPI. - Constitutional Constitutional: no chills, no fever(s), no night sweats - EENT Eyes: no change in vision, no discharge, no pain, no photophobia Ears: no ear discharge, no ear pain, no tinnitus Nose, mouth and throat: no dysphagia, no nasal discharge, no neck pain, no sore throat - Cardiovascular Cardiovascular ROS IM: no chest pain, no diaphoresis, no dyspnea, no lighthe adedness, no palpitations, no syncope - Respiratory Respiratory: no cough, no dyspnea, no wheezing, no excessive phlegm production - Gastrointestinal Gastrointestinal: no abdominal pain, no diarrhea, no hematemesis, no hem atochezia, no melena, no nausea, no vomiting - Genitourinary Genitourinary: no change in urinary stream, no dysuria, no flank pain, no hematuria - Musculoskeletal Musculoskeletal ROS IM: no numbness, no tingling - Integumentary Integumentary IM: no rash, no unusual bruising - Neurological Neurological ROS: no confusion, no convulsions, no focal weakness, no numbness, no tingling, no tremor(s) - Hematologic/Lymphatic Hematologic/Lymphatic: no easy bruising - Constitutional Vitals: Temp Pulse Resp BP Pulse Ox 98.2 F 78 16 133/78 97 08/07/18 03:38 08/07/18 03:38 08/07/18 03:38 08/07/18 03:38 08/07/18 03:38 Exam: General: Alert and oriented 3 lying in bed in no acute distress Skin:Normal color, no rash, no lesions. HEENT:EOM, pupils equal, round and reactive. Cardiovascular:Normal S1 & S2, no rubs, murmurs or gallops. No JVD. Pulse regular. Lungs:Normal breath sounds, no wheezes or crackles. Abdomen:Soft, non-tender, no rigidity. Extremities:No deformity, no edema or tenderness, no joint swelling or clubbing. Neurological:Normal cognition and motor skills. Pulses:Carotid and radial pulses normal +2. Rest of the physical exam is non contributory Internal Med - H&P Results - Labs CBC & Chem 7: 08/06/18 23:17 08/07/18 05:18 Labs: Short CBC 08/06/18 Range/Units 23:17 WBC 7.8 (4.3-11.1) K/mcL Hgb 11.7 (11.5-15.4) g/dL Hct 36.0 (35.3-44.9) % Plt Count 179 (140-400) K/mcL Neutrophils # 5.3 (1.6-8.9) K/mcL BMP 08/06/18 23:17 Sodium 139 Potassium 4.2 Chloride 104 Carbon Dioxide 26 BUN 22 H Creatinine 1.22 H Glucose 117 H Calcium 9.6 Cardiac Enzymes 08/06/18 Range/Units 23:17 Troponin I < 0.03 (< 0.04) ng/mL Liver Function 08/06/18 Range/Units 23:17 Total Bilirubin 0.6 (0.3-1.0) mg/dL Direct Bilirubin 0.1 (0.0-0.2) mg/dL AST 18 (13-39) Units/L ALT 14 (7-52) Units/L Alkaline Phosphatase 136 H (34-104) Units/L Albumin 4.1 (3.5-5.7) g/dL - Impressions ITS Impressions Chest X-Ray 08/06/18 23:42 IMPRESSION: Stable negative chest. D/ / Mikala Campbell MD / Mikala Campbell MD Interpreting Provider: Mikala Campbell MD - Assessment and Plan (1) Chest pain Current Visit: Yes Status: Acute Assessment and plan: Patient presented with atypical chest pain described as left sided, sharp and radiating to the back associated with shortness of breath and lightheadedness. Has history of coronary artery disease status post stent. Initial troponin negative. EKG shows normal sinus rhythm with no ischemic changes. Low s uspicion for ACS. Patient received loading dose of aspirin in the ED. -Trend troponin -Telemetry -Check A1c and lipid panel -Echocardiogram -We will obtain stress test if troponins remain negative. Qualifiers: Chest pain type: unspecified Qualified Code(s): R07.9 - Chest pain, unspecified (2) Acute kidney injury Current Visit: Yes Status: Acute Assessment and plan: Mildly elevated creatinine of 1.22. Patient received 1 L fluid bolus in the ED. We will reassess. (3) CAD (coronary artery disease) Current Visit: No Status: Chronic Assessment and plan: History of coronary artery disease status post PCI with stent in 2005. Patient currently on HARDIK inhibitor and high-dose atorvastatin. She states that she takes a baby aspirin. Does not appear to be on a beta [place] and she is unsure why. Continue medical management. Qualifiers: Coronary Disease-Associated Artery/Lesion type: [place] artery [place] vs. transplanted heart: [place] heart Associated angina: without angina Qualified Code(s): I25.10 - Atherosclerotic heart disease of [place] coronary artery without angina pectoris (4) Diabetes Current Visit: No Status: Chronic Assessment and plan: Blood glucose checks every 6 with sliding scale. We will check A1c. Qualifiers: Diabetes mellitus type: type 2 Diabetes mellitus [place] insulin use: unspecified [place] insulin use status Diabetes mellitus complication status: without complication Qualified Code(s): E11.9 - Type 2 diabetes mellitus without complications (5) DVT prophylaxis Current Visit: Yes Status: Acute Assessment and plan: Subcutaneous heparin - Time Spent With Patient Total time spent is greater than 50% in coordination of care (as documented) at patient's floor/unit and/or counseling patient:
[2018-08-07] MEDS ORDERED: Dextrose Gel 15 GM/37.5 ML TUBE PO PRN ×2 (04:57)
[2018-08-07] MEDS ORDERED: D5% in Water 1,000 ML IVC PRN (04:57)
[2018-08-07] MEDS ORDERED: *HR* Dextrose 50 % in Water (Syg) 50 ML SYRINGE IVP PRN (04:57)
[2018-08-07 05:50] LABS: Chol/HDL Ratio 2.3 (0-4.9)
[2018-08-07 05:51] LABS: Alanine Aminotransferase 12 Units/L (7-52); Albumin 3.4 g/dL (3.5-5.7); Albumin/Globulin Ratio 1.4 (1.1-2.2); Alkaline Phosphatase 119 Units/L (34-104); Aspartate Amino Transferase 15 Units/L (13-39); BUN/Creatinine Ratio 17 (6-26); Bilirubin,Total 0.5 mg/dL (0.3-1.0); Blood Urea Nitrogen 18 mg/dL (6-20); Carbon Dioxide 26 mEq/L (23-29); Chloride 106 mEq/L (98-107); Globulin 2.5 g/dL (2.4-3.5); Glucose 107 mg/dL (70-105); Osmolality,Calculated 294 (280-300); Potassium 4.3 mEq/L (3.5-5.1); Sodium 141 mEq/L (136-145); Total Protein 5.9 g/dL (6.4-8.9); eGFR For African Americans > 60 (> 60); eGFR For Non-African Americans 55 (> 60)
[2018-08-07] MEDS ORDERED: Insulin LISPRO 300 UNITS/3 ML VIAL SQ SCH (06:00)
[2018-08-07] MEDS ORDERED: *HR* Heparin 5,000 UNIT/ML VIAL SQ SCH (06:00)
[2018-08-07] MEDS ORDERED: Regadenoson 0.4 MG/5 ML SYRINGE IVP ONE (06:12)
[2018-08-07 06:53] LABS: Estimated Average Glucose 120 mg/dl; Hemoglobin A1C 5.8 %
[2018-08-07] MEDS ORDERED: Cyanocobalamin (B-12) 1,000 MCG TABLET PO SCH (09:00)
[2018-08-07] MEDS ORDERED: Pregabalin 75 MG CAPSULE PO SCH (09:00)
[2018-08-07] MEDS ORDERED: Fluticasone Propionate Nasal 50 MCG/SPRAY BOTTLE NS SCH (09:00)
[2018-08-07] MEDS: Sucralfate 1 GM TABLET PO SCH ×2 (09:56→11:45)
[2018-08-07 10:50] VITALS: BP 158/84
--- NOTE | 2018-08-07 14:12 | Discharge Summary ---
Orders not resulted at time of discharge: Pending orders 08/07/18 03:13 NM mary perf SPECT multi [NM] Routine Date of Encounter: 08/07/18 Time of Encounter: 14:12 Hospital course: Ms. Marquez is a 53 year old female with past medical history of obesity, status post gastric bypass, polyneuropathy, chronic pain syndrome, CAD status post PCI with stent n 2005, and DM who presented to the ED with complaints of left-sided chest pain. Patient reports she has been having chest pain since Tuesday described as sharp, left-sided and radiating to her back. Pain is about 8 out of 10 in intensity and lasts for approximately 10 minutes. Associated symptoms include lightheadedness and shortness of breath. Denies any nausea. No reports of recent illness. Patient states that she has noted with anxiety typically brings it on and when she tries to calm herself down and take deep breaths, symptoms typically resolve. Patient has had OK before with stent placement. She reports that her current presentation is different from when she had her OK. Patient does report she has been under some stress lately. She does not smoke. Drinks wine on occasion. Denies drug use. Significant family history of coronary artery disease in her father. On arrival patient was mildly hypertensive with initial blood pressure 157/103 and tachycardic with a heart rate of 105. Patient was otherwise afebrile. Laboratory workup was relatively unremarkable including a negative troponin. Her creatinine was mildly elevated at 1.22. EKG was obtained which showed normal sinus rhythm with a heart rate of 83, right bundle branch block and no evidence of T-wave or ST abnormalities. Chest x-ray was unremarkable. Patient admitted for ACS rule out. Patient is full code. Patient has atypical chest pain, chest pain is soft. She had a negative troponin negative EKG chest x-ray and. Had echocardiogram which is normal. Stress test also negative. D-dimer is negative. Patient is discharge on stable condition. Mild acute renal failure resolved after IV fluids Time spent discussing smoking cessation with patient: 3 to 10 minutes - Time Spent with Patient Total time spent providing and/or coordinating discharge services: Time spent: Less than 30 minutes - Discharge Medications Prescriptions: Continued Omeprazole [PriLOSEC] 20 mg PO DAILY rOPINIRole [Requip] 1 mg PO HS Tapentadol HCl [Nucynta] 50 mg PO TID PRN PRN Reason: Pain Pregabalin [Lyrica] 150 mg PO TID Fluticasone Propionate Nasal [Flonase] 50 mcg NS BID Cyanocobalamin (Vitamin B-12) [Vitamin B12] 2,000 mcg PO DAILY Lisinopril 2.5 mg PO DAILY Sucralfate [Carafate] 1 gm PO QIDAC Atorvastatin Calcium [Lipitor] 80 mg PO HS Home Medications: Fluticasone Propionate Nasal [Flonase] 50 mcg NS BID 05/28/16 [History] Omeprazole [PriLOSEC] 20 mg PO DAILY 05/28/16 [History] Pregabalin [Lyrica] 150 mg PO TID 05/28/16 [History] Tapentadol HCl [Nucynta] 50 mg PO TID PRN 05/28/16 [History] rOPINIRole [Requip] 1 mg PO HS 05/28/16 [History] Cyanocobalamin (Vitamin B-12) [Vitamin B12] 2,000 mcg PO DAILY 06/15/16 [History] Lisinopril 2.5 mg PO DAILY 06/24/16 [History] Atorvastatin Calcium [Lipitor] 80 mg PO HS 08/07/18 [History] Sucralfate [Carafate] 1 gm PO QIDAC 08/07/18 [History] Allergies/Adverse Reactions: Allergy/AdvReac Type Severity Reaction Status Date / Time latex Allergy Rash Verified 06/17/18 22:19 Sulfa (Sulfonamide Allergy Anaphylaxis Verified 06/17/18 22:19 Antibiotics) tramadol AdvReac Gastrointestinal Verified 06/17/18 22:19 Upset Date of admission: 08/07/18 02:08 Primary care physician: Irvin Barr MD - Constitutional Vitals: Temp Pulse Resp BP Pulse Ox 97.9 F 76 17 158/84 98 08/07/18 10:49 08/07/18 10:49 08/07/18 10:49 08/07/18 10:49 08/07/18 10:49 General appearance: Present: A&O X 3 Exam: General: Alert and oriented 3 lying in bed in no acute distress Skin:Normal color, no rash, no lesions. HEENT:EOM, pupils equal, round and reactive. Cardiovascular:Normal S1 & S2, no rubs, murmurs or gallops. No JVD. Pulse regular. Lungs:Normal breath sounds, no wheezes or crackles. Abdomen:Soft, non-tender, no rigidity. Extremities:No deformity, no edema or tenderness, no joint swelling or clubbing. Neurological:Normal cognition and motor skills. Pulses:Carotid and radial pulses normal +2. Rest of the physical exam is non contributory - Patient Status Disposition: Home, Self-Care Functional capacity at discharge: independent ambulation Overall status at discharge: patient is back to baseline - Discharge Instructions Follow Up With: Irvin Barr MD [Primary Care Provider] -
[2018-08-07] MEDS ORDERED: rOPINIRole 1 MG TABLET PO SCH (21:00)
--- NOTE | 2018-08-07 21:46 | Electrocardiograph Report ---
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
--- NOTE | 2018-08-10 20:00 | Electrocardiograph Report ---
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
== END 2018-08-07 14:46 | disposition home or self-care (01) ==
LOC: EMEROOARM 22:46 → 2ANU 22:46
PROVIDERS: ADMIT Internal Medicine; ATTEND Internal Medicine

== ENCOUNTER 2018-10-06 19:01 | Observation (INO) ==
[2018-10-06] MEDS ORDERED: 0.9 % Sodium Chloride 1,000 ML IVC ONE ×2 (19:33→20:37)
[2018-10-06 20:04] LABS: Basophils % 0.3 %; Eosinophils % 0.3 %; Hematocrit 37.6 % (35.3-44.9); Hemoglobin 12.4 g/dL (11.5-15.4); Immature Granulocytes % 0.8 % (0-4); Lymphocytes # 1.8 K/mcL (0.6-4.6); Lymphocytes % 23.5 %; Mean Corpuscular Hemoglobin 31.2 pg (28.0-33.3); Mean Corpuscular Volume 94.5 fL (83.0-100.0); Mean Platelet Volume 9.9 fL (9.4-12.4); Monocytes # 0.8 K/mcL (0.0-1.3); Monocytes % 10.1 %; Neutrophils # 4.9 K/mcL (1.6-8.9); Platelet Count 194 K/mcL (140-400); Red Blood Count 3.98 M/mcL (3.82-4.97); Red Cell Distribution Width 12.6 % (11.5-14.5); White Blood Count 7.5 K/mcL (4.3-11.1)
[2018-10-06 20:16] LABS: Albumin 4.3 g/dL (3.5-5.7); Albumin/Globulin Ratio 1.4 (1.1-2.2); Bilirubin,Direct 0.1 mg/dL (0.0-0.2); Bilirubin,Indirect 0.6 mg/dL (0.0-1.2); Bilirubin,Total 0.7 mg/dL (0.3-1.0); Calcium 8.6 mg/dL (8.6-10.3); Globulin 3.1 g/dL (2.4-3.5); Total Protein 7.4 g/dL (6.4-8.9)
[2018-10-06 20:25] LABS: Large Platelets Present (Not Present); Platelet Estimate Normal (Normal); Toxic Granulation Present (Not Present)
[2018-10-07] MEDS: MetroNIDAZOLE 500 MG/100 ML 500 MG/100 ML BAG IVPB SCH ×2 (00:11→07:59)
[2018-10-07] MEDS: Ringers Solution, Lactated 1,000 ML IVC SCH ×3 (02:17→16:27)
[2018-10-07 02:56] LABS: Adenovirus F 40/41 PCR Not detected (Not detect); Astrovirus PCR Not detected (Not detect); C.difficile Toxin A/B Gene PCR Not detected (Not detect); Campylobacter by PCR Not detected (Not detect); Cryptosporidium by PCR Not detected (Not detect); Cyclospora cayetanensis PCR Not detected (Not detect); E. coli O157 by PCR Not detected (Not detect); Entamoeba histolytica PCR Not detected (Not detect); Enteroaggregative E.coli(EAEC) Not detected (Not detect); Enteropathogenic E.coli(EPEC) Not detected (Not detect); Enterotoxigenic E.coli (ETEC) Not detected (Not detect); Giardia lamblia PCR Not detected (Not detect); Norovirus GI/GII PCR Not detected (Not detect); Plesiomonas shigelloides PCR Not detected (Not detect); Rotavirus A PCR Not detected (Not detect); Salmonella PCR Not detected (Not detect); Sapovirus PCR Not detected (Not detect); Shig/EnteroinvasiveE coli EIEC Not detected (Not detect); Shigalike tox-prod E coli STEC Not detected (Not detect); Vibrio PCR Not detected (Not detect); Vibrio cholerae PCR Not detected (Not detect); Yersinia enterocolitica PCR Not detected (Not detect)
[2018-10-07] MEDS: *HR* Heparin 5,000 UNIT/ML VIAL SQ SCH ×2 (06:14→18:20)
[2018-10-07 07:41] LABS: Hematocrit 30.4 % (35.3-44.9); Mean Corpuscular HGB Conc 33.2 g/dL (31.6-35.5); Mean Corpuscular Hemoglobin 31.4 pg (28.0-33.3); Mean Corpuscular Volume 94.4 fL (83.0-100.0); Monocytes # 0.6 K/mcL (0.0-1.3); Nucleated Red Blood Cells 1.1 /100 WBC (0); Platelet Count 121 K/mcL (140-400); Red Blood Count 3.22 M/mcL (3.82-4.97); Red Cell Distribution Width 12.6 % (11.5-14.5); White Blood Count 4.6 K/mcL (4.3-11.1)
[2018-10-07 07:49] LABS: Hemoglobin 10.1 g/dL (11.5-15.4)
[2018-10-07 08:00] LABS: Calcium 7.6 mg/dL (8.6-10.3); Magnesium 1.1 mg/dL (1.6-2.6)
[2018-10-07 08:45] LABS: Platelet Estimate Slight Decrease (Normal)
[2018-10-07 20:23] LABS: Calcium 8.2 mg/dL (8.6-10.3); Potassium 3.8 mEq/L (3.5-5.1)
[2018-10-07] MEDS ORDERED: 0.9 % Sodium Chloride 1,000 ML IVC SCH (22:45)
[2018-10-08 03:36] LABS: Hematocrit 32.6 % (35.3-44.9); Hemoglobin 10.3 g/dL (11.5-15.4); Immature Reticulocyte % 15.8 % (11.0-38.0); Mean Corpuscular HGB Conc 31.6 g/dL (31.6-35.5); Mean Corpuscular Volume 98.2 fL (83.0-100.0); Mean Platelet Volume 9.6 fL (9.4-12.4); Platelet Count 132 K/mcL (140-400); Red Blood Count 3.32 M/mcL (3.82-4.97); Retculocyte # 0.06 M/mcL (0.05-0.10); Reticulocyte % 1.8 % (1.6-2.8); White Blood Count 4.3 K/mcL (4.3-11.1)
[2018-10-08 03:53] LABS: Albumin 3.3 g/dL (3.5-5.7); Albumin/Globulin Ratio 1.3 (1.1-2.2); Bilirubin,Total 0.4 mg/dL (0.3-1.0); Calcium 8.3 mg/dL (8.6-10.3); Globulin 2.5 g/dL (2.4-3.5); Potassium 3.5 mEq/L (3.5-5.1); Total Protein 5.8 g/dL (6.4-8.9)
[2018-10-08 03:54] LABS: % Iron Saturation 7 % (15-50); Iron 17 mcg/dL (50-170); Transferrin 168 mg/dL (203-362)
[2018-10-08 04:12] LABS: Ferritin 25 ng/mL (10-120)
[2018-10-08 04:22] LABS: Folate > 22.3 ng/mL (3.0-16.0); Vitamin B12 > 1500 pg/mL (250-1100)
[2018-10-08 04:26] LABS: Lymphocytes # 1.8 K/mcL (0.6-4.6); Monocytes # 0.4 K/mcL (0.0-1.3); Platelet Estimate Normal (Normal)
[2018-10-08] MEDS: Fluticasone Propionate Nasal 50 MCG/SPRAY BOTTLE NS SCH ×2 (05:07→08:38)
[2018-10-08] MEDS: *HR* Heparin 5,000 UNIT/ML VIAL SQ SCH (06:18)
[2018-10-08 08:58] VITALS: BP 87/62
== END 2018-10-08 11:41 | disposition home or self-care (01) ==
LOC: 3ANU 19:01 → EMEROOARM 19:01 → SUATTDRO 21:07 → 3ANU 22:27
PROVIDERS: ADMIT Family Medicine; ATTEND Internal Medicine

== ENCOUNTER 2018-10-16 20:30 | Inpatient (IN) ==
[2018-10-16 21:31] LABS: Hematocrit 29.4 % (35.3-44.9); Hemoglobin 9.2 g/dL (11.5-15.4); Mean Corpuscular HGB Conc 31.3 g/dL (31.6-35.5); Mean Corpuscular Hemoglobin 30.3 pg (28.0-33.3); Mean Corpuscular Volume 96.7 fL (83.0-100.0); Mean Platelet Volume 9.3 fL (9.4-12.4); Platelet Count 136 K/mcL (140-400); Red Blood Count 3.04 M/mcL (3.82-4.97); Red Cell Distribution Width 13.2 % (11.5-14.5)
[2018-10-16 21:35] LABS: White Blood Count 2.8 K/mcL (4.3-11.1)
--- NOTE | 2018-10-16 21:42 | Emergency Department Note ---
Disposition Clinical Impression: Elevated serum creatinine, Hypomagnesemia, Hypocalcemia Urinary tract infection Qualifiers: Urinary tract infection type: site unspecified Hematuria presence: without hematuria Qualified Code(s): N39.0 - Urinary tract infection, site not specified Leukopenia Qualifiers: Leukopenia type: unspecified Qualified Code(s): D72.819 - Decreased white blood cell count, unspecified Disposition: Home, Self-Care Condition: Fair Referrals: Irvin Barr MD [Primary Care Provider] - Forms: ED Satisfaction Letter Time of Disposition: 23:47 Female Urogenital HPI - General Chief complaint: ED Urogenital-Female Stated complaint: poss UTI/confused Time Seen by Provider: 10/16/18 20:46 Source: patient, family Mode of arrival: ambulatory Limitations: no limitations Nursing Notes Reviewed: Yes Vital Signs Reviewed: Yes - History of Present Illness HPI Narrative: 53-year-old male past medical history of multiple recurrent urinary tract infections, diabetes, CAD experiencing 3 day history of confusion, generalized malaise, lightheadedness, dizziness, some shortness of breath, urinary symptoms with urinary retention. at bedside states that this is the exact presentation of his 's UTI during nearly every previous presentation. But has no other concerns or complaints at this time. Upon my initial evaluation, my general impression is that the patient is awake, alert, oriented, engaged to conversation and answering questions appropriately. There are no overt lateralizing signs, the patient is in no acute distress; their skin appears to be normal in color, they are not pale, not cyanotic, and not diaphoretic, they are sitting up in hospital bed interacting appropriately with environment. Pt Subjective Complaint: dysuria, "UTI" Onset (ago): day(s) - Related Data Home Medications Medication Instructions Recorded Confirmed Fluticasone Propionate Nasal 50 mcg NS BID 05/28/16 10/08/18 [Flonase] Tapentadol HCl [Nucynta] 50 mg PO TID PRN 05/28/16 10/08/18 Lisinopril 2.5 mg PO DAILY 06/24/16 10/08/18 Atorvastatin Calcium [Lipitor] 80 mg PO HS 08/07/18 10/08/18 Amitriptyline [Elavil] 25 mg PO HS 10/08/18 10/08/18 Cyanocobalamin (Vitamin B-12) 1,000 mcg PO DAILY 10/08/18 10/08/18 [Vitamin B12] Cyanocobalamin/Folic AC/Vit B6 1 each PO DAILY 10/08/18 10/08/18 [Folbee Tablet] DULoxetine [Cymbalta] 30 mg PO DAILY 10/08/18 10/08/18 Liraglutide [Victoza 3-Jovon] 1.2 mg SQ DAILY 10/08/18 10/08/18 Pregabalin [Lyrica] 100 mg PO BID 10/08/18 10/08/18 Sucralfate [Carafate] 1 tab PO Q5H PRN 10/08/18 10/08/18 Previous Rx's Medication Instructions Recorded Ferrous Sulfate 325 mg PO BID 90 Days #180 tablet 10/08/18 Loperamide [Imodium] 2 mg PO Q4HR PRN capsule 10/08/18 Allergies Allergy/AdvReac Type Severity Reaction Status Date / Time latex Allergy Rash Verified 10/16/18 20:58 Sulfa (Sulfonamide Allergy Anaphylaxis Verified 10/16/18 20:58 Antibiotics) tramadol AdvReac Gastrointestinal Verified 10/16/18 20:58 Upset Review of Systems: *See History of Present Illness for more detail Constitutional: Admits: fever, chills Cardiovascular: Denies: chest pain Respiratory: Admits: dyspnea, denies: cough, hemoptysis Gastrointestinal: Admits: abdominal pain, denies: nausea, vomiting, diarrhea, constipation, hematemesis, melena, hematochezia Genitourinary: Admits to urinary retention with some dysuria Denies: hematuria Musculoskeletal: Denies: back pain, neck pain Neurological: Denies: headache, weakness, lightheadedness/dizziness, numbness, paresthesias, difficulty with ambulation. Endocrine: Denies: fatigue All systems ED: reviewed and negative except as stated. Review of Systems: As Per HPI Past Medical History - Past Medical History Medical history: Reports: COPD, coronary artery disease, diabetes, GERD, hypertension Surgical history: Reports: , cholecystectomy, herniorrhaphy, hyst erectomy Psychiatric history: Reports: anxiety, depression - Social History Smoking Status: Never smoker Smokeless Tobacco Status: No Alcohol use: Reports: occasionally Drug use: Reports: none Physical Exam Constitutional: No acute distress, [id number], engaged to conversation, speech is fluid, answers questions appropriately Neuro: GCS 15, no overt focal neurological deficits Head: Atraumatic, normocephalic Eyes: Pupils equal, round and reactive to light, no scleral icterus, no conjunctival injection Neck: Trachea midline without deviation. Anterior neck is supple without swelling. *Chest: Symmetric chest wall rise *Heart: Cardiac rhythm and rate are regular with S1 and S2 , no S3 or S4 appreciated, no murmurs, gallops, rubs, or clicks. *Lungs: Lungs are clear to auscultation bilaterally, without accessory muscle use or prolonged expiratory phase. No wheezes, rhonchi or stridor appreciated. Abdomen: Abdomen is flat, soft to palpation, normal bowel sounds. No abdominal bruit auscultated. Non-distended, non-rigid, no organomegaly, no ascites appreciated. No pulsatile mass, no tenderness or guarding to palpation in all four quadrants, no rebound Extremities: Normal capillary refill without evidence of pedal edema, joint swelling or erythema. Pulses/motor intact in distal extremities. Psychiatric exam: Patient displays a normal affect and mood for the environment. No overt signs of hallucination. Integumentary: warm, dry, intact, normal color. No rash, cyanosis, diaphoresis, erythema, or pallor - General Limitations: no limitations General appearance: alert, in no apparent distress Course Course Narrative: Basic labs, urinalysis, magnesium, phosphorus Vital Signs Temperature 99.2 F 10/16/18 20:44 Pulse Rate 105 10/16/18 20:44 Respiratory Rate 18 10/16/18 20:44 Blood Pressure 108/69 10/16/18 20:44 O2 Sat by Pulse Oximetry 95 10/16/18 20:44 Temperature 99.2 F 10/16/18 20:44 Pulse Rate 92 10/16/18 20:57 Respiratory Rate 18 10/16/18 20:44 Blood Pressure 108/71 10/16/18 20:57 O2 Sat by Pulse Oximetry 96 10/16/18 20:57 Oxygen Delivery Oxygen Delivery Room Air Urogenital-Female - MDM Narrative Medical decision making narrative: The patients aboratory results showed neutropenia with a bandemia, acute kidney injury with UTI consistent with pyelonephritis, patient has hypomagnesemia as well as hypocalcemia. Evaluation results were discussed with the patient and their family member(s) at bedside. Patient was given time to ask questions and state concerns. The patient states that they have had significant relief of their symptoms with our management here in the ED. The patient will be admitted to the hospitalist medicine service for further evaluation and management of acute kidney injury, . The patient verbalizes their understanding and agreement with this plan and is h emodynamically stable at the time of admission. - Lab Data Lab results reviewed: Yes I reviewed the patient's lab results. Result diagrams: 10/16/18 21:16 10/16/18 21:16 Lab Results 10/16/18 10/16/18 10/16/18 Range/Units 21:16 21:16 22:00 WBC 2.8 L D (4.3-11.1) K/mcL RBC 3.04 L (3.82-4.97) M/mcL Hgb 9.2 L (11.5-15.4) g/dL Hct 29.4 L (35.3-44.9) % MCV 96.7 (83.0-100.0) fL MCH 30.3 (28.0-33.3) pg MCHC 31.3 L (31.6-35.5) g/dL RDW 13.2 (11.5-14.5) % Plt Count 136 L (140-400) K/mcL MPV 9.3 L (9.4-12.4) fL Seg Neutrophils % 40.0 % Band Neutrophils % 16.0 H (0-4) % Lymphocytes % 34.0 % Monocytes % 8.0 % Metamyelocytes % 2.0 H (0) % Neutrophils # 1.6 (1.6-8.9) K/mcL Lymphocytes # 1.0 (0.6-4.6) K/mcL Monocytes # 0.2 (0.0-1.3) K/mcL Platelet Estimate Slight Decrease L (Normal) Sodium 135 L (136-145) mEq/L Potassium 3.9 (3.5-5.1) mEq/L Chloride 104 (98-107) mEq/L Carbon Dioxide 25 (23-29) mEq/L BUN 26 H (6-20) mg/dL Creatinine 1.37 H (0.60-1.20) mg/dL Est GFR ( Amer) 49 L (> 60) Est GFR (Non-Af Amer) 40 L (> 60) BUN/Creatinine Ratio 19 (6-26) Glucose 98 (70-105) mg/dL Calculated Osmolality 285 (280-300) Calcium 7.6 L (8.6-10.3) mg/dL Phosphorus 3.3 (2.7-4.5) mg/dL Magnesium 1.5 L (1.6-2.6) mg/dL Urine Color Yellow (Yellow) Urine Clarity Cloudy A (Clear) Urine pH 5.5 (5.0-8.0) pH Units Ur Specific [place] 1.014 (1.010-1.025) Urine Protein Negative (Neg-Trace) mg/dL Urine Glucose (UA) Normal (Normal) mg/dL Urine Ketones Negative (Negative) mg/dL Urine Blood Small H (Negative) Urine Nitrite Negative (Negative) Urine Bilirubin Negative (Negative) Urine Urobilinogen Normal (Normal) mg/dL Ur Leukocyte Esterase Large H (Negative) Urine Microscopic RBC 5-15 H (0-3) per hpf Urine Microscopic WBC TNTC H (0-3) per hpf Ur Squamous Epith Cells Many H (None-Few) per lpf Urine Bacteria Few (None-Few) per hpf Hyaline Casts None Seen (None-Few) per lpf Ur Culture Indicated? YES A (NO) - Radiology Data Radiology results reviewed: Yes I reviewed the patient's radiology results.
[2018-10-16 21:44] LABS: Calcium 7.6 mg/dL (8.6-10.3); Potassium 3.9 mEq/L (3.5-5.1)
[2018-10-16 21:57] LABS: Monocytes # 0.2 K/mcL (0.0-1.3); Neutrophils # 1.6 K/mcL (1.6-8.9); Platelet Estimate Slight Decrease (Normal)
[2018-10-16 22:15] LABS: Bilirubin,Urine Negative (Negative); Blood,Urine Small (Negative); Clarity,Urine Cloudy (Clear); Color,Urine Yellow (Yellow); Glucose,Urine (UA) Normal (Normal); Ketones,Urine Negative (Negative); Leukocyte Esterase,Urine Large (Negative); Nitrite,Urine Negative (Negative); PH,Urine 5.5 pH Units (5.0-8.0); Protein,Urine Negative (Neg-Trace); Specific Gravity,Urine 1.014 (1.010-1.025); Urobilinogen,Urine Normal (Normal)
[2018-10-16 22:18] LABS: Bacteria,Urine Few per hpf (None-Few); Hyaline Casts,Urine None Seen per lpf (None-Few); Squamous Epithelial Cell,Urine Many per lpf (None-Few); WBC,Urine TNTC per hpf (0-3)
[2018-10-16] MEDS ORDERED: Calcium Gluconate 1gm/50mL 1 GM/50 ML BAG IVPB ONE ×2 (22:35→22:44)
[2018-10-16] MEDS ORDERED: cefTRIAXone 1,000 MG in Water for inj. (sterile) 10 ML IVP ONE (22:35)
[2018-10-16] MEDS ORDERED: 0.9 % Sodium Chloride 1,000 ML IVC ONE (22:35)
[2018-10-16 23:00] LABS: Magnesium 1.5 mg/dL (1.6-2.6); Phosphorous 3.3 mg/dL (2.7-4.5)
--- NOTE | 2018-10-16 23:40 | Emergency Department Note ---
Disposition Clinical Impression: Urinary tract infection, Elevated serum creatinine, Hypomagnesemia, Hypocalcemia, Leukopenia Disposition: Home, Self-Care Condition: Fair Referrals: Irvin Barr MD [Primary Care Provider] - Forms: ED Satisfaction Letter Time of Disposition: 23:41 General Adult HPI - General Chief complaint: ED Urogenital-Female Stated complaint: poss UTI/confused Time Seen by Provider: 10/16/18 20:46 Source: patient, family Mode of arrival: ambulatory Limitations: no limitations Nursing Notes Reviewed: Yes Vital Signs Reviewed: Yes - History of Present Illness Pain Scale: 0 - Related Data Home Medications Medication Instructions Recorded Confirmed Fluticasone Propionate Nasal 50 mcg NS BID 05/28/16 10/08/18 [Flonase] Tapentadol HCl [Nucynta] 50 mg PO TID PRN 05/28/16 10/08/18 Lisinopril 2.5 mg PO DAILY 06/24/16 10/08/18 Atorvastatin Calcium [Lipitor] 80 mg PO HS 08/07/18 10/08/18 Amitriptyline [Elavil] 25 mg PO HS 10/08/18 10/08/18 Cyanocobalamin (Vitamin B-12) 1,000 mcg PO DAILY 10/08/18 10/08/18 [Vitamin B12] Cyanocobalamin/Folic AC/Vit B6 1 each PO DAILY 10/08/18 10/08/18 [Folbee Tablet] DULoxetine [Cymbalta] 30 mg PO DAILY 10/08/18 10/08/18 Liraglutide [Victoza 3-Jovon] 1.2 mg SQ DAILY 10/08/18 10/08/18 Pregabalin [Lyrica] 100 mg PO BID 10/08/18 10/08/18 Sucralfate [Carafate] 1 tab PO Q5H PRN 10/08/18 10/08/18 Previous Rx's Medication Instructions Recorded Ferrous Sulfate 325 mg PO BID 90 Days #180 tablet 10/08/18 Loperamide [Imodium] 2 mg PO Q4HR PRN capsule 10/08/18 Allergies Allergy/AdvReac Type Severity Reaction Status Date / Time latex Allergy Rash Verified 10/16/18 20:58 Sulfa (Sulfonamide Allergy Anaphylaxis Verified 10/16/18 20:58 Antibiotics) tramadol AdvReac Gastrointestinal Verified 10/16/18 20:58 Upset Past Medical History - Past Medical History Medical history: Reports: COPD, coronary artery disease, diabetes, GERD, hypertension Surgical history: Reports: , cholecystectomy, herniorrhaphy, hysterectomy Psychiatric history: Reports: anxiety, depression - Social History Smoking Status: Never smoker Smokeless Tobacco Status: No Alcohol use: Reports: occasionally Drug use: Reports: none Physical Exam - General Limitations: no limitations General appearance: alert, in no apparent distress Course Vital Signs Temperature 99.2 F 10/16/18 20:44 Pulse Rate 105 10/16/18 20:44 Respiratory Rate 18 10/16/18 20:44 Blood Pressure 108/69 10/16/18 20:44 O2 Sat by Pulse Oximetry 95 10/16/18 20:44 Temperature 99.2 F 10/16/18 20:44 Pulse Rate 92 10/16/18 20:57 Respiratory Rate 18 10/16/18 20:44 Blood Pressure 108/71 10/16/18 20:57 O2 Sat by Pulse Oximetry 96 10/16/18 20:57 Oxygen Delivery Oxygen Delivery Room Air Medical Decision Making - Lab Data Result diagrams: 10/16/18 21:16 10/16/18 21:16 Lab Results 10/16/18 10/16/18 10/16/18 Range/Units 21:16 21:16 22:00 WBC 2.8 L D (4.3-11.1) K/mcL RBC 3.04 L (3.82-4.97) M/mcL Hgb 9.2 L (11.5-15.4) g/dL Hct 29.4 L (35.3-44.9) % MCV 96.7 (83.0-100.0) fL MCH 30.3 (28.0-33.3) pg MCHC 31.3 L (31.6-35.5) g/dL RDW 13.2 (11.5-14.5) % Plt Count 136 L (140-400) K/mcL MPV 9.3 L (9.4-12.4) fL Seg Neutrophils % 40.0 % Band Neutrophils % 16.0 H (0-4) % Lymphocytes % 34.0 % Monocytes % 8.0 % Metamyelocytes % 2.0 H (0) % Neutrophils # 1.6 (1.6-8.9) K/mcL Lymphocytes # 1.0 (0.6-4.6) K/mcL Monocytes # 0.2 (0.0-1.3) K/mcL Platelet Estimate Slight Decrease L (Normal) Sodium 135 L (136-145) mEq/L Potassium 3.9 (3.5-5.1) mEq/L Chloride 104 (98-107) mEq/L Carbon Dioxide 25 (23-29) mEq/L BUN 26 H (6-20) mg/dL Creatinine 1.37 H (0.60-1.20) mg/dL Est GFR ( Amer) 49 L (> 60) Est GFR (Non-Af Amer) 40 L (> 60) BUN/Creatinine Ratio 19 (6-26) Glucose 98 (70-105) mg/dL Calculated Osmolality 285 (280-300) Calcium 7.6 L (8.6-10.3) mg/dL Phosphorus 3.3 (2.7-4.5) mg/dL Magnesium 1.5 L (1.6-2.6) mg/dL Urine Color Yellow (Yellow) Urine Clarity Cloudy A (Clear) Urine pH 5.5 (5.0-8.0) pH Units Ur Specific [place] 1.014 (1.010-1.025) Urine Protein Negative (Neg-Trace) mg/dL Urine Glucose (UA) Normal (Normal) mg/dL Urine Ketones Negative (Negative) mg/dL Urine Blood Small H (Negative) Urine Nitrite Negative (Negative) Urine Bilirubin Negative (Negative) Urine Urobilinogen Normal (Normal) mg/dL Ur Leukocyte Esterase Large H (Negative) Urine Microscopic RBC 5-15 H (0-3) per hpf Urine Microscopic WBC TNTC H (0-3) per hpf Ur Squamous Epith Cells Many H (None-Few) per lpf Urine Bacteria Few (None-Few) per hpf Hyaline Casts None Seen (None-Few) per lpf Ur Culture Indicated? YES A (NO) Attestation Statement - Attestation Attestation: I have seen this patient with the resident physician, I have personally evaluated this patient. I had reviewed the chart and document dictation by the resident physician and aM in agreement with the information documented by the resident physician. Please see documentation by the resident physician for complete chart including past medical history, family medical history, review of systems, current history and physical and laboratory and imaging studies. I was present for all procedures, provided direct supervision for all pro cedures, was present for the entirety of all procedures and provided direct guidance during the procedures. Please see documentation by the resident physician for any procedures performed. I have reviewed all interpretations of EKGs, and reviewed all EKGs performed on patient's as well. I have also reviewed reports of imaging as provided by radiology. Patient had presented with some generalized fatigue, the thought she seemed a little bit more confused than usual as well which she has had happen with urinary tract infections in the past. She was recently admitted for acute renal failure, with some associated diarrhea at that time with dehydration. She does have a history of recurrent UTIs and he states that it seems like she has a UTI. The patient states that she was able to work today. She states she does have some right low back pain without she may have injured her low back. She states that she thought she is pulled a muscle while doing some lifting at work yesterday. She denies significant urinary symptoms but often does not have these when she has UTIs. She denies fevers or chills. She denies any other acute concerns. Upon presentation, she appears in no acute distress alert and oriented, no focal neurologic findings lungs are clear heart is regular although tachycardic with a heart rate of 105, low-grade temperature elevation of 99.2 but no true fever remainder of the vital signs are within acceptable limits. Abdomen is soft and nontender there some mild right-sided CVA tenderness and right low back tenderness without rebound guarding or peritoneal sign of the abdomen without palpable pulsatile mass with a negative straight leg raise and a normal neurologic exam of the bilateral lower extremities with no evidence of cauda equina syndrome. Basic laboratory studies demonstrated new leukopenia with a total white blood cell count 2800 borderline neutropenia with a atrial count of 1600. Increased creatinine of 1.39 up from 0.9, but lower than recent admission of 2.09. Slightly low calcium of 7.6 and a low magnesium of 1.5. Patient was given IV fluid she was given magnesium and calcium supplementation she was given IV Rocephin and she was admitted to the hospital for further management.
[2018-10-17 00:28] LABS: VBG Ionized Calcium 1.04 mmol/L (1.15-1.35)
[2018-10-17] MEDS ORDERED: Naloxone 0.4 MG/ML INJ IVP PRN (01:11)
[2018-10-17] MEDS ORDERED: 0.9 % Sodium Chloride 1,000 ML IVC SCH (01:15)
[2018-10-17] MEDS ORDERED: *HR* Dextrose 50 % in Water (Syg) 50 ML SYRINGE IVP PRN (01:23)
[2018-10-17] MEDS ORDERED: Dextrose Gel 15 GM/37.5 ML TUBE PO PRN ×2 (01:23)
[2018-10-17] MEDS ORDERED: D5% in Water 1,000 ML IVC PRN (01:23)
[2018-10-17] MEDS ORDERED: Insulin LISPRO 300 UNITS/3 ML VIAL SQ SCH (01:30)
[2018-10-17] MEDS: Insulin LISPRO 300 UNITS/3 ML VIAL SQ SCH ×4 (01:35→15:24)
[2018-10-17] MEDS ORDERED: cefTRIAXone 1,000 MG in Water for inj. (sterile) 10 ML IVP ONE (01:41)
--- NOTE | 2018-10-17 01:45 | Internal Med History&Physical ---
<Annel Castro - Last Filed: 10/17/18 01:14> Date of Encounter: 10/17/18 Time of Encounter: 01:14 Internal Medicine - H&P: HPI History of present illness: Ms. Marquez is a 53 year old female with past medical history of lupus, diabetes, COPD, CAD, hypertension who presented to the ED complaining of confusion at home. She reports that she was sitting when her partner thought she was not coherent. She does state that at home takes insulin at home to help with weight loss due to previous diagnosis of diabetes although reports her glucose is usually 80s to 100 at home. He states yesterday she started feeling unsteady denies any falls. This morning she reports her dizziness and unsteadiness worsened at work. After work she states her partner believed she was not speaking clearly the patient also felt confused subsequently coming to the ER. She states she had similar symptoms 1 week ago during her recent admission when she was dehydrated due to diarrhea. Does elicit right flank pain ongoing for the past week worsened in the past few days. She denies any tinnitus or sensat ion of room spinning or her spinning. Additionally denies dysuria, nausea, emesis, shortness of breath, chest pain, abdominal pain. In the ED she was noted to have white blood cell count of 2.3 with neutrophil bands of 16, her heart rate was noted to be 103 and blood pressure was 90s /70s. Urinalysis showed episode count with leukocyte esterase and cloudy urine. She received 1 L IV fluids and 1 g of Rocephin and reports improvement in symptoms of confusion. Past Med Surg Social Fam HX - Past Medical History Medical history: COPD, coronary artery disease, diabetes, GERD, hypertension Additional medical history: lupus Psychiatric history: anxiety, depression - Past Surgical History Surgical History: , cholecystectomy, herniorrhaphy, hysterectomy Additional surgical history: gastric bypass - Social History Smoking Status: Never smoker Smokeless Tobacco Status: No Alcohol use: occasionally Drug use: none - Family History Mother Living Status: Still Living Hx Family Cardiac Disorders: Yes Hx Family Cancer: No Hx Family GI Disorders: Yes Hx Family Endocrine Disorder: No Father Hx Family Cancer: Yes (CML with metastases to brain) Internal Medicine - H&P: Meds Fluticasone Propionate Nasal [Flonase] 50 mcg NS BID 05/28/16 [History] Tapentadol HCl [Nucynta] 50 mg PO TID PRN 05/28/16 [History] Lisinopril 2.5 mg PO DAILY 06/24/16 [History] Atorvastatin Calcium [Lipitor] 80 mg PO HS 08/07/18 [History] Cyanocobalamin (Vitamin B-12) [Vitamin B12] 1,000 mcg PO DAILY 10/08/18 [History] Cyanocobalamin/Folic AC/Vit B6 [Folbee Tablet] 1 each PO DAILY 10/08/18 [History] Ferrous Sulfate 325 mg PO BID 90 Days #180 tablet 10/08/18 [Rx] Liraglutide [Victoza 3-Jovon] 1.2 mg SQ DAILY 10/08/18 [History] Loperamide [Imodium] 2 mg PO Q4HR PRN capsule 10/08/18 [Rx] Pregabalin [Lyrica] 100 mg PO BID 10/08/18 [History] Sucralfate [Carafate] 1 tab PO Q5H PRN 10/08/18 [History] Allergy/AdvReac Type Severity Reaction Status Date / Time latex Allergy Rash Verified 10/16/18 20:58 Sulfa (Sulfonamide Allergy Anaphylaxis Verified 10/16/18 20:58 Antibiotics) tramadol AdvReac Gastrointestinal Verified 10/16/18 20:58 Upset All Systems PM: A 10-system review of systems was performed and is negative for pertinent findings except as documented above in the HPI. - Constitutional Constitutional: chills, no fever(s), no weakness - EENT Eyes: no blurry vision, no discharge, no loss of vision - Cardiovascular Cardiovascular ROS IM: no chest pain, no dyspnea, no dyspnea on exertion - Respiratory Respiratory: no cough, no dyspnea, no dyspnea on exertion, no wheezing - Gastrointestinal Gastrointestinal: no abdominal pain, no diarrhea, no hematemesis, no hematochezia - Genitourinary Genitourinary: flank pain, no difficulty urinating, no dysuria - Musculoskeletal Musculoskeletal ROS IM: back pain (Right-sided), no arthralgias, no myalgias, no numbness - Integumentary Integumentary IM: no erythema, no pruritus, no rash - Neurological Neurological ROS: confusion, no frequent falls, no headache(s), no weakness - Constitutional Vitals: Temp Pulse Resp BP Pulse Ox 99.2 F 87 16 98/78 99 10/16/18 20:44 10/17/18 00:00 10/16/18 22:53 10/17/18 00:00 10/17/18 00:00 General appearance: Present: A&O X 3 Exam: Gen: Vitals noted. No acute distress. Appears comfortable. Eyes: anicteric sclerae, moist conjunctivae; no lid-lag; Pupils equal and reactive to light HENT: Atraumatic; oropharynx clear, no mucosal ulcerations; normal hard and soft palate, dry mucous membranes Neck: Trachea midline; supple, no thyromegaly or lymphadenopathy Cardiac: RRR, no murmur, +S1/S2. No JVD noted. Pulmonary: CTA bilaterally, no wheezes, rales or rhonchi, equal chest expansion Abdomen: soft, nontender, no guarding. No masses or hepatosplenomegaly MSK: ROM intact, no joint swelling noted, right back pain Extremities: no edema, nontender calf, decreased capillary refill Skin: Normal temperature, decreased turgor, no rash, ulcers or subcutaneous nodules Neuro: moves all extremities, no focal deficits. Psych: Appropriate mood and behavior. A&Ox3 Internal Med - H&P Results - Labs CBC & Chem 7: 10/16/18 21:16 10/16/18 21:16 Labs: Short CBC 10/16/18 Range/Units 21:16 WBC 2.8 L D (4.3-11.1) K/mcL Hgb 9.2 L (11.5-15.4) g/dL Hct 29.4 L (35.3-44.9) % Plt Count 136 L (140-400) K/mcL Neutrophils # 1.6 (1.6-8.9) K/mcL BMP 10/16/18 21:16 Sodium 135 L Potassium 3.9 Chloride 104 Carbon Dioxide 25 BUN 26 H Creatinine 1.37 H Glucose 98 Calcium 7.6 L Urine 10/16/18 Range/Units 22:00 Urine Color Yellow (Yellow) Urine Clarity Cloudy A (Clear) Urine pH 5.5 (5.0-8.0) pH Units Ur Specific [place] 1.014 (1.010-1.025) Urine Protein Negative (Neg-Trace) mg/dL Urine Glucose (UA) Normal (Normal) mg/dL - Assessment and Plan (1) Severe sepsis Current Visit: Yes Status: Acute Assessment and plan: Presented with altered mental status Met +2/4 SIRS criteria, suspected source UTI White blood cell count noted to be 2.8 with neutrophil bands of 16 Reports symptoms of dizziness and imbalance ongoing for the past 1 day worsened this morning Sodium 135 with poor capillary refill Previous history of UTI with Escherichia coli colonization Lactic acid pending, continue to trend 3 L of IV fluid ordered Continue ceftriaxone 2 mg daily Sepsis protocol ordered Renal ultrasound ordered to rule out renal involvement Repeat CBC and BMP pending (2) UTI (urinary tract infection) Current Visit: Yes Status: Acute Assessment and plan: Presented to the ED with altered mental status Urinalysis showed 20 to count white blood cell count with cloudy urine a ppearance Previous history of Escherichia coli colonization White blood cell count noted to be 2.8 with bands of 16, with hypotension, tachycardia and MANSI Urine cultures pending Continue 2 g ceftriaxone daily Renal ultrasound pending to rule out renal involvement Qualifiers: Urinary tract infection type: acute cystitis Hematuria presence: with hematuria Qualified Code(s): N30.01 - Acute cystitis with hematuria (3) Acute kidney injury superimposed on CKD Current Visit: Yes Status: Acute Assessment and plan: GFR noted to be 40 which appears at baseline Currently noted to be 1.37 increased from 0.97, 4 days ago Could be secondary to lupus nephritis Does not follow outpatient with nephrology and reports that she has been urged to follow outpatient during her recent hospital stay Renal ultrasound ordered Repeat BMP in the morning (4) Encephalopathy Current Visit: Yes Status: Acute Assessment and plan: Reports at home was "delirious" Could be secondary to UTI versus other etiology States this morning started feeling imbalanced Reports similar episode one week ago when she was dehydrated due to diarrhea Confusion resolved after hydration but continues to report dizziness with movement Denies tinnitus or vertigo Is awake, alert, oriented 3 CT head ordered Continue to treat UTI (5) CAD (coronary artery disease) Current Visit: No Status: Chronic Assessment and plan: History of CAD continue home atorvastatin Qualifiers: Coronary Disease-Associated Artery/Lesion type: unspecified vessel or lesion type [place] vs. transplanted heart: unspecified whether [place] or transplanted heart Associated angina: without angina Qualified Code(s): I25.10 - Atherosclerotic heart disease of [place] coronary artery without angina pectoris (6) Lupus Current Visit: Yes Status: Chronic Assessment and plan: History of lupus continue Zaida Is not on any steroids at home (7) Anemia Current Visit: No Status: Chronic Assessment and plan: Chronic iron deficiency anemia with likely etiology of CKD Reports no source of active bleeding denies hematemesis, hematochezia or melena Qualifiers: Anemia type: iron deficiency Iron deficiency anemia type: unspecified iron deficiency Qualified Code(s): D50.9 - Iron deficiency anemia, unspecified (8) Diabetes mellitus Current Visit: Yes Status: Chronic Assessment and plan: History of type 2 diabetes On insulin at home A1c pending ACHS accucheck with low-dose sliding scale Diabetic diet Qualifiers: Diabetes mellitus type: type 2 Diabetes 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 insulin 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 prison use Diabetes mellitus complication status: with other specified complication Qualified Code(s): E11.69 - Type 2 diabetes mellitus with other specified complication; Z79.4 - jail (current) use of insulin (9) DVT prophylaxis Current Visit: Yes Status: Acute Assessment and plan: Heparin subcutaneous - Time Spent With Patient Total time spent is greater than 50% in coordination of care (as documented) at patient's floor/unit and/or counseling patient: <Matteo Rolle - Last Filed: 10/17/18 06:46> Date of Encounter: 10/17/18 Time of Encounter: 01:50 - Constitutional Constitutional: no fever(s) - EENT Eyes: no blurry vision, no change in vision - Cardiovascular Cardiovascular ROS IM: lightheadedness, no chest pain, no dyspnea, no syncope - Respiratory Respiratory: no cough, no dyspnea, no chest congestion - Gastrointestinal Gastrointestinal: nausea, no abdominal pain, no melena, no vomiting - Genitourinary Genitourinary: flank pain, no hematuria - Musculoskeletal Musculoskeletal ROS IM: back pain, no arthralgias, no muscle cramps - Neurological Neurological ROS: confusion, no frequent falls, no headache(s) - Psychiatric Psychiatric: no anxiety, no depression - Endocrine Endocrine IM: no polydipsia, no polyuria, no other - Allergic/Immunologic Allergic/Immunologic: no GI upset with certain foods - Constitutional Vitals: Temp Pulse Resp BP Pulse Ox 100.4 F H 74 18 97/58 95 10/17/18 05:26 10/17/18 06:00 10/17/18 06:00 10/17/18 06:00 10/17/18 06:00 General appearance: Present: cooperative, pleasant - Head Head exam: Present: normal inspection - Eye Eye exam: Present: EOMI, PERRL. Absent: scleral icterus - ENT ENT exam: Present: mucous membranes dry, normal exam, normal oropharynx - Neck Neck exam general surgery: Present: full ROM, supple, trachea midline. Absent: lymphadenopathy, tenderness, nuchal rigidity, thyromegaly - Expanded Neck Exam Neck exam: Absent: carotid bruit - Respiratory Respiratory exam: Present: CTAB. Absent: chest wall tenderness, rales, rhonchi, wheezes - Cardiovascular Cardiovascular exam: Present: RRR, +S1, +S2, systolic murmur. Absent: diastolic murmur - GI/Abdominal GI/Abdominal exam: Present: normal bowel sounds, soft, tenderness (mild supraubic pain). Absent: hepatomegaly, mass, splenomegaly - Extremities Exam Extremities exam: Present: warm. Absent: calf tenderness, joint swelling, normal capillary refill (delayed at roughly 4 seconds), mottling, pedal edema, tenderness - Back Exam Back exam: Present: normal inspection. Absent: CVA tenderness (L), CVA tenderness (R) - Neurological Exam Neurological exam: Present: alert, CN II-XII intact, oriented X3, no focal deficits - Psychiatric Psychiatric exam: Present: normal affect, normal mood - Skin Skin exam: Present: dry, intact, warm. Absent: rash Internal Med - H&P Results - Labs CBC & Chem 7: 10/17/18 02:10 10/17/18 02:10 Labs: Short CBC 10/16/18 10/17/18 Range/Units 21:16 02:10 WBC 2.8 L D 2.3 L (4.3-11.1) K/mcL Hgb 9.2 L 9.2 L (11.5-15.4) g/dL Hct 29.4 L 29.3 L (35.3-44.9) % Plt Count 136 L 117 L (140-400) K/mcL Neutrophils # 1.6 1.3 L (1.6-8.9) K/mcL BMP 10/16/18 10/17/18 21:16 02:10 Sodium 135 L 136 Potassium 3.9 3.7 Chloride 104 104 Carbon Dioxide 25 24 BUN 26 H 24 H Creatinine 1.37 H 1.36 H Glucose 98 100 Calcium 7.6 L 7.7 L Liver Function 10/17/18 Range/Units 02:10 Total Bilirubin 0.4 (0.3-1.0) mg/dL Direct Bilirubin 0.1 (0.0-0.2) mg/dL AST 23 (13-39) Units/L ALT 16 (7-52) Units/L Alkaline Phosphatase 112 H (34-104) Units/L Albumin 3.2 L (3.5-5.7) g/dL Urine 10/16/18 Range/Units 22:00 Urine Color Yellow (Yellow) Urine Clarity Cloudy A (Clear) Urine pH 5.5 (5.0-8.0) pH Units Ur Specific [place] 1.014 (1.010-1.025) Urine Protein Negative (Neg-Trace) mg/dL Urine Glucose (UA) Normal (Normal) mg/dL - Time Spent With Patient Total time spent is greater than 50% in coordination of care (as documented) at patient's floor/unit and/or counseling patient: - Attending Attestation I discussed the patient QAGAN TAYAGUNGIN, PMH, ROS, lab data, and exam findings with Dr. Castro. I then saw and examined patient independently as well. Patient has delayed cap refill, looks dry, and has several indicators to suggest sepsis. 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 She is alert, coherent, and exhibits no neurologic issues presently. We will monitor her closely, treat her with IVF and antibiotics, and trend lactates. Her PAINTING INSTRUCTOR symptoms and jacquie kopenia may be secondary to lupus flare as well, and she may warrant Rheumatology consult as well. Patient does not take chronic steroids or any DMARDS. Other than my comments above and documented exam findings, I agree with Dr. Castro's assessment and plan.
[2018-10-17] MEDS: 0.9 % Sodium Chloride 1,000 ML IVC SCH ×2 (01:49→03:01)
[2018-10-17 02:35] LABS: Basophils % 0.4 %; Hematocrit 29.3 % (35.3-44.9); Hemoglobin 9.2 g/dL (11.5-15.4); Immature Granulocytes % 0.4 % (0-4); Lymphocytes # 0.9 K/mcL (0.6-4.6); Lymphocytes % 38.8 %; Mean Corpuscular HGB Conc 31.4 g/dL (31.6-35.5); Mean Corpuscular Hemoglobin 30.5 pg (28.0-33.3); Mean Platelet Volume 9.6 fL (9.4-12.4); Monocytes # 0.1 K/mcL (0.0-1.3); Neutrophils # 1.3 K/mcL (1.6-8.9); Platelet Count 117 K/mcL (140-400); Red Blood Count 3.02 M/mcL (3.82-4.97); Red Cell Distribution Width 13.2 % (11.5-14.5); Segmented Neutrophils % 54.4 %; White Blood Count 2.3 K/mcL (4.3-11.1)
[2018-10-17 02:54] LABS: Albumin 3.2 g/dL (3.5-5.7); Albumin/Globulin Ratio 1.3 (1.1-2.2); Bilirubin,Direct 0.1 mg/dL (0.0-0.2); Bilirubin,Indirect 0.3 mg/dL (0.0-1.2); Bilirubin,Total 0.4 mg/dL (0.3-1.0); Calcium 7.7 mg/dL (8.6-10.3); Globulin 2.5 g/dL (2.4-3.5); Magnesium 1.7 mg/dL (1.6-2.6); Potassium 3.7 mEq/L (3.5-5.1); Total Protein 5.7 g/dL (6.4-8.9)
[2018-10-17] MEDS ORDERED: Acetaminophen 325 MG TABLET PO ONE (04:01)
[2018-10-17 04:24] LABS: Platelet Estimate Slight Decrease (Normal)
[2018-10-17] MEDS ORDERED: *HR* Heparin 5,000 UNIT/ML VIAL SQ SCH (06:00)
[2018-10-17 07:37] LABS: Estimated Average Glucose 120 mg/dl
[2018-10-17] MEDS ORDERED: Losartan/HCTZ 50-12.5 TABLET PO SCH (09:00)
[2018-10-17] MEDS ORDERED: Pregabalin 50 MG CAPSULE PO SCH (09:00)
--- NOTE | 2018-10-17 10:45 | Electrocardiograph Report ---
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
[2018-10-17] MEDS ORDERED: Iron Sucrose Complex 400 MG in 0.9 % Sodium Chloride 250 ML IVPB ONE (10:56)
[2018-10-17 11:03] VITALS: BP 98/62
[2018-10-17 14:54] LABS: Mean Corpuscular HGB Conc 31.3 g/dL (31.6-35.5)
[2018-10-17 14:55] LABS: Hematocrit 28.8 % (35.3-44.9); Immature Granulocytes % 1.1 % (0-4); Lymphocytes # 0.4 K/mcL (0.6-4.6); Lymphocytes % 22.7 %; Mean Corpuscular Hemoglobin 30.5 pg (28.0-33.3); Mean Corpuscular Volume 97.6 fL (83.0-100.0); Mean Platelet Volume 9.2 fL (9.4-12.4); Monocytes # 0.1 K/mcL (0.0-1.3); Monocytes % 5.1 %; Neutrophils # 1.3 K/mcL (1.6-8.9); Platelet Count 117 K/mcL (140-400); Red Blood Count 2.95 M/mcL (3.82-4.97); Red Cell Distribution Width 13.1 % (11.5-14.5); Segmented Neutrophils % 71.1 %; White Blood Count 1.8 K/mcL (4.3-11.1)
[2018-10-17 15:05] LABS: Platelet Estimate Slight Decrease (Normal)
[2018-10-17 15:06] LABS: Reactive Lymphocytes Present (Not Present)
[2018-10-17 15:13] LABS: BUN/Creatinine Ratio 17 (6-26); Blood Urea Nitrogen 19 mg/dL (6-20); Calcium 7.3 mg/dL (8.6-10.3); Carbon Dioxide 25 mEq/L (23-29); Chloride 109 mEq/L (98-107); Glucose 128 mg/dL (70-105); Osmolality,Calculated 294 (280-300); Sodium 140 mEq/L (136-145); eGFR For African Americans > 60 (> 60); eGFR For Non-African Americans 50 (> 60)
--- NOTE | 2018-10-17 16:43 | Discharge Summary ---
Orders not resulted at time of discharge: Pending orders 10/16/18 22:00 Culture,Urine [RM] Stat 10/17/18 02:10 Culture,Blood [BC] Stat Date of Encounter: 10/17/18 Time of Encounter: 16:36 - Discharge Diagnosis (1) Severe sepsis Priority: Primary Status: Acute (2) UTI (urinary tract infection) Priority: Secondary Status: Acute Qualifiers: Urinary tract infection type: acute cystitis Hematuria presence: with hematuria Qualified Code(s): N30.01 - Acute cystitis with hematuria (3) Acute kidney injury superimposed on CKD Priority: Secondary Status: Acute (4) CKD (chronic kidney disease), stage III Priority: Secondary Status: Acute (5) Leukopenia Priority: Secondary Status: Acute Qualifiers: Leukopenia type: neutropenia Neutropenia type: due to infection Qualified Code(s): D70.3 - Neutropenia due to infection Hospital course: Ms. Marquez is a 53 year old female with history of SLE, diabetes, COPD, NAD, and recent admission for diarrhea presented with confusion at home and found to be septic secondary to a urinary source. She was treated with IV antibiotics but elected to leave AMA the next day. Was still febrile at that time. For harm reduction patient was prescribed Keflex for 7 days (all previous urine culture sensitive to this) and will follow up urine culture and call patient if resistant, given AMA discharge high risk for or returning to the hospital. Discharge discussed with: patient, family - Time Spent with Patient Total time spent providing and/or coordinating discharge services: 70 minutes Time spent: Greater than 30 minutes - Discharge Medications Prescriptions: New cephALEXin [Keflex] 500 mg PO BID 7 Days #14 capsule Continued Tapentadol HCl [Nucynta] 50 mg PO TID PRN PRN Reason: Pain Fluticasone Propionate Nasal [Flonase] 50 mcg NS BID Lisinopril 1.25 mg PO DAILY Atorvastatin Calcium [Lipitor] 80 mg PO HS Loperamide [Imodium] 2 mg PO Q4HR PRN capsule PRN Reason: Diarrhea Cyanocobalamin/Folic AC/Vit B6 [Folbee Tablet] 1 each PO DAILY Liraglutide [Victoza 3-Jovon] 1.2 mg SQ DAILY PRN PRN Reason: see comments. Pregabalin [Lyrica] 100 mg PO TID Sucralfate [Carafate] 1 tab PO BID Ferrous Sulfate 325 mg PO BID 90 Days #180 tablet Home Medications: Fluticasone Propionate Nasal [Flonase] 50 mcg NS BID 05/28/16 [History] Tapentadol HCl [Nucynta] 50 mg PO TID PRN 05/28/16 [History] Lisinopril 1.25 mg PO DAILY 06/24/16 [History] Atorvastatin Calcium [Lipitor] 80 mg PO HS 08/07/18 [History] Cyanocobalamin/Folic AC/Vit B6 [Folbee Tablet] 1 each PO DAILY 10/08/18 [History] Ferrous Sulfate 325 mg PO BID 90 Days #180 tablet 10/08/18 [Rx] Liraglutide [Victoza 3-Jovon] 1.2 mg SQ DAILY PRN 10/08/18 [History] Loperamide [Imodium] 2 mg PO Q4HR PRN capsule 10/08/18 [Rx] Pregabalin [Lyrica] 100 mg PO TID 10/08/18 [History] Sucralfate [Carafate] 1 tab PO BID 10/08/18 [History] cephALEXin [Keflex] 500 mg PO BID 7 Days #14 capsule 10/17/18 [Rx] Allergies/Adverse Reactions: Allergy/AdvReac Type Severity Reaction Status Date / Time latex Allergy Rash Verified 10/16/18 20:58 Sulfa (Sulfonamide Allergy Anaphylaxis Verified 10/16/18 20:58 Antibiotics) tramadol AdvReac Gastrointestinal Verified 10/16/18 20:58 Upset Date of admission: 10/17/18 06:33 Primary care physician: Irvin Barr MD - Constitutional Vitals: Temp Pulse Resp BP Pulse Ox 100.6 F H 74 16 98/62 99 10/17/18 15:57 10/17/18 11:00 10/17/18 11:00 10/17/18 11:00 10/17/18 11:00 General appearance: Present: cooperative, pleasant Exam: General: Ill-appearing and in no acute distress HEENT: No erythema of posterior pharynx. No exudates. Lymphatics: No mandibular or cervical lymphadenopathy Cardiovascular: RRR. No murmurs. No chest wall tenderness. Lungs: Clear to auscelltation bilaterally. Regular chest rise. Abdomen: Non-tender. No rebound or gaurding. Nl bowel sounds. Extremities: No edema. 2+ pulses radial and pedal pulses Skin: No rahses, abrasions, or contusions. Nl cap refill. Psych: Nl attention. A&Ox3 Neuro: flat clothier II-XII intact. 5/5 strength. Sensation to light touch and pinprick intact. - Patient Status Disposition: Left Against Medical Advice Functional capacity at discharge: uses cane/walker Overall status at discharge: patient is not back to baseline - Discharge Instructions Follow Up With: Irvin Barr MD [Primary Care Provider] - 10/19/18 10:30 am - Diet and Activity Activity: increase activity as tolerated Diet: diabetic diet
[2018-10-17] MEDS ORDERED: cefTRIAXone 1,000 MG in Water for inj. (sterile) 10 ML IVP SCH (22:00)
[2018-10-17] MEDS ORDERED: cefTRIAXone 2,000 MG in Water for inj. (sterile) 20 ML IVP SCH (22:00)
[2018-10-18] MEDS ORDERED: cefTRIAXone 2,000 MG in Water for inj. (sterile) 20 ML IVP SCH (22:00)
== END 2018-10-17 16:39 | disposition left against medical advice (07) | DRG 872 ==
LOC: EMEROOARM 20:30 → ICNU 20:30
PROVIDERS: ADMIT Internal Medicine Nephrology; ATTEND Internal Medicine Nephrology

== ENCOUNTER 2019-03-23 21:37 | Inpatient (IN) ==
[2019-03-23] MEDS ORDERED: 0.9 % Sodium Chloride 1,000 ML ONE (21:48)
[2019-03-23] MEDS ORDERED: Ondansetron 4 MG/2 ML VIAL IVP ONE (22:02)
[2019-03-23] MEDS ORDERED: Calcium Gluconate 1gm/50mL 1 GM/50 ML BAG IVPB ONE ×3 (22:02→22:24)
[2019-03-23 22:12] LABS: Basophils % 0.4 %; Hemoglobin 10.4 g/dL (11.5-15.4); Immature Granulocytes % 0.2 % (0-4); Lymphocytes # 2.1 K/mcL (0.6-4.6); Lymphocytes % 37.7 %; Mean Corpuscular HGB Conc 33.5 g/dL (31.6-35.5); Mean Corpuscular Hemoglobin 32.7 pg (28.0-33.3); Mean Corpuscular Volume 97.5 fL (83.0-100.0); Mean Platelet Volume 9.7 fL (9.4-12.4); Monocytes # 0.2 K/mcL (0.0-1.3); Neutrophils # 3.2 K/mcL (1.6-8.9); Platelet Count 188 K/mcL (140-400); Red Blood Count 3.18 M/mcL (3.82-4.97); Red Cell Distribution Width 12.6 % (11.5-14.5); Segmented Neutrophils % 57.7 %; White Blood Count 5.5 K/mcL (4.3-11.1)
[2019-03-23] MEDS: 0.9 % Sodium Chloride 1,000 ML IVC SCH ×2 (22:17→22:42)
[2019-03-23 22:39] LABS: Albumin 3.6 g/dL (3.5-5.7); Albumin/Globulin Ratio 1.3 (1.1-2.2); Bilirubin,Indirect 0.3 mg/dL (0.0-1.0); Bilirubin,Total 0.3 mg/dL (0.3-1.0); Calcium 8.6 mg/dL (8.6-10.3); Globulin 2.7 g/dL (2.4-3.5); Potassium 5.1 mEq/L (3.5-5.1); Total Protein 6.3 g/dL (6.4-8.9); Troponin I 0.1 ng/mL (< 0.04)
[2019-03-23] MEDS ORDERED: Aspirin 325 MG TABLET PO ONE (22:42)
[2019-03-23] MEDS ORDERED: 0.9 % Sodium Chloride 250 ML ONE (22:56)
[2019-03-23] MEDS ORDERED: *HR* Norepinephrine 4 MG/4 ML VIAL IVC ONE (22:56)
[2019-03-23 23:12] LABS: Bilirubin,Urine Negative (Negative); Blood,Urine Negative (Negative); Clarity,Urine Cloudy (Clear); Color,Urine Yellow (Yellow); Glucose,Urine (UA) Normal (Normal); Ketones,Urine Negative (Negative); Leukocyte Esterase,Urine Moderate (Negative); Nitrite,Urine Negative (Negative); Protein,Urine Negative (Neg-Trace); Specific Gravity,Urine 1.018 (1.010-1.025); Urobilinogen,Urine Normal (Normal)
[2019-03-23 23:15] LABS: Bacteria,Urine None Seen per hpf (None-Few); Hyaline Casts,Urine None Seen per lpf (None-Few); Squamous Epithelial Cell,Urine Many per lpf (None-Few); WBC,Urine 15-30 per hpf (0-3)
[2019-03-23] MEDS ORDERED: Norepinephrine 4 MG in 0.9 % Sodium Chloride 250 ML IVC SCH (23:15)
[2019-03-23] MEDS ORDERED: 0.9 % Sodium Chloride 1,000 ML IVC ONE (23:39)
[2019-03-24] MEDS ORDERED: Naloxone 0.4 MG/ML INJ IVP PRN (01:18)
[2019-03-24] MEDS ORDERED: Ondansetron ODT 4 MG TAB.RAPDIS SL PRN (01:18)
[2019-03-24] MEDS ORDERED: *HR* Heparin 5,000 UNIT/ML VIAL IVP PRN ×2 (01:28)
[2019-03-24] MEDS ORDERED: *HR* Heparin 5,000 UNIT/ML VIAL IVP ONE (01:28)
[2019-03-24] MEDS ORDERED: Heparin 25,000 UNIT/250 ML D5W 25,000 UNIT/250 ML IV.SOLN IVC SCH (01:30)
[2019-03-24] MEDS ORDERED: 0.9 % Sodium Chloride 1,000 ML IVC SCH (01:30)
[2019-03-24] MEDS ORDERED: *HR* Dextrose 50 % in Water (Syg) 50 ML SYRINGE IVP PRN (02:06)
[2019-03-24] MEDS ORDERED: D5% in Water 1,000 ML IVC PRN (02:06)
[2019-03-24] MEDS ORDERED: Dextrose Gel 15 GM/37.5 ML TUBE PO PRN ×2 (02:06)
[2019-03-24 05:13] LABS: Hematocrit 30.6 % (35.3-44.9); Hemoglobin 9.6 g/dL (11.5-15.4); Mean Corpuscular HGB Conc 31.4 g/dL (31.6-35.5); Mean Corpuscular Hemoglobin 32.2 pg (28.0-33.3); Mean Corpuscular Volume 102.7 fL (83.0-100.0); Mean Platelet Volume 9.9 fL (9.4-12.4); Platelet Count 142 K/mcL (140-400); Red Blood Count 2.98 M/mcL (3.82-4.97); Red Cell Distribution Width 12.7 % (11.5-14.5); White Blood Count 4.8 K/mcL (4.3-11.1)
[2019-03-24 05:23] LABS: Prothrombin Time 11.5 Seconds (9.4-12.1)
[2019-03-24 05:24] LABS: Heparin anti-factor XA UFH 0.51 IU/mL (0.30-0.70)
[2019-03-24 05:34] LABS: Calcium 8.4 mg/dL (8.6-10.3); Potassium 5.2 mEq/L (3.5-5.1)
[2019-03-24] MEDS: Acetaminophen 325 MG TABLET PO PRN ×2 (06:07→13:40)
[2019-03-24] MEDS: Doxycycline 100 MG in 0.9 % Sodium Chloride Mini Bag 100 ML IVPB SCH ×2 (09:00→16:44)
[2019-03-24] MEDS: Furosemide 20 MG/2 ML VIAL IVP SCH ×2 (09:12→16:44)
[2019-03-24] MEDS: Insulin LISPRO 300 UNITS/3 ML VIAL SQ SCH ×3 (09:14→17:00)
[2019-03-24] MEDS: *HR* HYDROcodone/Acet 5/325 mg TABLET PO PRN ×2 (09:14→22:29)
[2019-03-24] MEDS: Aspirin Enteric Coated 81 MG Tablet PO SCH (09:14)
[2019-03-24] MEDS ORDERED: Perflutren Lipid Microsphere 1.3 ML in 0.9 % Sodium Chloride 8.7 ML IVP ONE (09:36)
[2019-03-24] MEDS ORDERED: tiZANidine 4 MG TABLET PO PRN (10:58)
[2019-03-24] MEDS: Pregabalin 50 MG CAPSULE PO SCH ×2 (13:40→22:15)
[2019-03-24] MEDS: *HR* Heparin 5,000 UNIT/ML VIAL SQ SCH (18:04)
[2019-03-24] MEDS ORDERED: Insulin LISPRO 300 UNITS/3 ML VIAL SQ SCH (21:00)
[2019-03-25] MEDS: Doxycycline 100 MG in 0.9 % Sodium Chloride Mini Bag 100 ML IVPB SCH (05:19)
[2019-03-25] MEDS: *HR* Heparin 5,000 UNIT/ML VIAL SQ SCH (05:19)
[2019-03-25 07:20] VITALS: BP 133/78
[2019-03-25 09:08] LABS: Magnesium 1.5 mg/dL (1.6-2.6); Phosphorous 4.5 mg/dL (2.7-4.5); Potassium 4.7 mEq/L (3.5-5.1)
[2019-03-25] MEDS: Pregabalin 50 MG CAPSULE PO SCH (09:10)
[2019-03-25] MEDS: Furosemide 20 MG/2 ML VIAL IVP SCH (09:10)
[2019-03-25] MEDS: Aspirin Enteric Coated 81 MG Tablet PO SCH (09:10)
[2019-03-25] MEDS: Insulin LISPRO 300 UNITS/3 ML VIAL SQ SCH (09:11)
[2019-03-25] MEDS ORDERED: Magnesium Oxide 400 MG TABLET PO ONE (09:11)
== END 2019-03-25 11:18 | disposition home or self-care (01) | DRG 918 ==
LOC: EMEROOARM 21:37 → 2NNU 03-24 03:25
PROVIDERS: ADMIT Internal Medicine; ATTEND Internal Medicine

== ENCOUNTER 2019-05-30 22:27 | Observation (INO) ==
[2019-05-30 23:12] LABS: Bilirubin,Urine Negative (Negative); Blood,Urine Negative (Negative); Clarity,Urine Clear (Clear); Color,Urine Yellow (Yellow); Glucose,Urine (UA) Normal (Normal); Ketones,Urine Negative (Negative); Leukocyte Esterase,Urine Moderate (Negative); Nitrite,Urine Negative (Negative); Protein,Urine 100 mg/dL (Neg-Trace); Specific Gravity,Urine 1.017 (1.010-1.025); Urobilinogen,Urine Normal (Normal)
[2019-05-30 23:14] LABS: Bacteria,Urine None Seen per hpf (None-Few); Hyaline Casts,Urine None Seen per lpf (None-Few); RBC,Urine 0-3 per hpf (0-3); Squamous Epithelial Cell,Urine Many per lpf (None-Few)
[2019-05-30 23:19] LABS: Basophils % 0.3 %; Hemoglobin 12.1 g/dL (11.5-15.4); Immature Granulocytes % 0.3 % (0-4); Lymphocytes # 2.9 K/mcL (0.6-4.6); Lymphocytes % 32.1 %; Mean Corpuscular HGB Conc 32.7 g/dL (31.6-35.5); Mean Corpuscular Hemoglobin 31.5 pg (28.0-33.3); Mean Corpuscular Volume 96.4 fL (83.0-100.0); Mean Platelet Volume 9.9 fL (9.4-12.4); Monocytes # 0.6 K/mcL (0.0-1.3); Monocytes % 6.8 %; Neutrophils # 5.5 K/mcL (1.6-8.9); Platelet Count 209 K/mcL (140-400); Red Blood Count 3.84 M/mcL (3.82-4.97); Red Cell Distribution Width 13.3 % (11.5-14.5); Segmented Neutrophils % 60.5 %; White Blood Count 9.1 K/mcL (4.3-11.1)
[2019-05-30] MEDS ORDERED: Aspirin 81 MG TAB.CHEW PO ONE (23:36)
[2019-05-30 23:44] LABS: BUN/Creatinine Ratio 19 (6-26); Blood Urea Nitrogen 21 mg/dL (6-20); Calcium 9.5 mg/dL (8.6-10.3); Carbon Dioxide 21 mEq/L (23-29); Chloride 106 mEq/L (98-107); Glucose 173 mg/dL (70-105); Osmolality,Calculated 299 (280-300); Potassium 4.3 mEq/L (3.5-5.1); Sodium 141 mEq/L (136-145); eGFR For African Americans > 60 (> 60); eGFR For Non-African Americans 51 (> 60)
[2019-05-30 23:48] LABS: Troponin I 0.09 ng/mL (< 0.04)
[2019-05-31] MEDS ORDERED: Naloxone 0.4 MG/ML INJ IVP PRN (00:36)
[2019-05-31 01:50] LABS: INR 1.1; Prothrombin Time 12.4 Seconds (9.4-12.1)
[2019-05-31 02:02] LABS: Alanine Aminotransferase 16 Units/L (7-52); Albumin 4.5 g/dL (3.5-5.7); Albumin/Globulin Ratio 1.7 (1.1-2.2); Alkaline Phosphatase 130 Units/L (34-104); Aspartate Amino Transferase 22 Units/L (13-39); BUN/Creatinine Ratio 18 (6-26); Bilirubin,Total 0.5 mg/dL (0.3-1.0); Blood Urea Nitrogen 21 mg/dL (6-20); Calcium 9.4 mg/dL (8.6-10.3); Carbon Dioxide 24 mEq/L (23-29); Chloride 108 mEq/L (98-107); Globulin 2.6 g/dL (2.4-3.5); Glucose 152 mg/dL (70-105); Magnesium 1.6 mg/dL (1.6-2.6); Osmolality,Calculated 298 (280-300); Phosphorous 4.4 mg/dL (2.7-4.5); Potassium 4.5 mEq/L (3.5-5.1); Sodium 141 mEq/L (136-145); Total Protein 7.1 g/dL (6.4-8.9); eGFR For African Americans > 60 (> 60); eGFR For Non-African Americans 50 (> 60)
[2019-05-31 02:15] LABS: Thyroid Stimulating Hormone 1.509 mcIU/mL (0.340-5.600)
[2019-05-31] MEDS ORDERED: *HR* Labetalol 20 MG/4 ML SYRINGE IVP PRN (02:19)
[2019-05-31] MEDS ORDERED: *HR* Heparin 5,000 UNIT/ML VIAL IVP PRN (02:46)
[2019-05-31] MEDS ORDERED: *HR* Heparin 5,000 UNIT/ML VIAL IVP ONE (02:46)
[2019-05-31] MEDS ORDERED: D5% in Water 1,000 ML IVC PRN (02:49)
[2019-05-31] MEDS ORDERED: Dextrose Gel 15 GM/37.5 ML TUBE PO PRN ×2 (02:49)
[2019-05-31] MEDS ORDERED: *HR* Dextrose 50 % in Water (Syg) 50 ML SYRINGE IVP PRN (02:49)
[2019-05-31] MEDS: Pregabalin 50 MG CAPSULE PO SCH ×4 (03:06→19:51)
[2019-05-31] MEDS: carvediloL 6.25 MG TABLET PO SCH ×3 (03:07→17:40)
[2019-05-31] MEDS ORDERED: Nitroglycerin 0.4 MG TAB.SUBL SL PRN (03:21)
[2019-05-31] MEDS: Heparin 25,000 UNIT/250 ML D5W 25,000 UNIT/250 ML IV.SOLN IVC SCH (03:28)
[2019-05-31 04:16] LABS: Hematocrit 34.1 % (35.3-44.9); Hemoglobin 11.1 g/dL (11.5-15.4); Mean Corpuscular HGB Conc 32.6 g/dL (31.6-35.5); Mean Corpuscular Hemoglobin 32.4 pg (28.0-33.3); Mean Corpuscular Volume 99.4 fL (83.0-100.0); Mean Platelet Volume 10.2 fL (9.4-12.4); Platelet Count 175 K/mcL (140-400); Red Blood Count 3.43 M/mcL (3.82-4.97); Red Cell Distribution Width 13.4 % (11.5-14.5); White Blood Count 7.3 K/mcL (4.3-11.1)
[2019-05-31 04:18] LABS: Heparin anti-factor XA UFH 0.87 IU/mL (0.30-0.70)
[2019-05-31 04:19] LABS: INR 1.1; Prothrombin Time 12.8 Seconds (9.4-12.1)
[2019-05-31 04:36] LABS: Albumin 4.1 g/dL (3.5-5.7); Albumin/Globulin Ratio 1.5 (1.1-2.2); Bilirubin,Total 0.5 mg/dL (0.3-1.0); Calcium 8.9 mg/dL (8.6-10.3); Globulin 2.7 g/dL (2.4-3.5); Magnesium 1.4 mg/dL (1.6-2.6); Phosphorous 4.4 mg/dL (2.7-4.5); Total Protein 6.8 g/dL (6.4-8.9)
[2019-05-31 04:48] LABS: Thyroid Stimulating Hormone 1.54 mcIU/mL (0.340-5.600)
[2019-05-31 09:05] LABS: Estimated Average Glucose 146 mg/dl
[2019-05-31] MEDS: Insulin LISPRO 300 UNITS/3 ML VIAL SQ SCH ×3 (09:08→17:53)
[2019-05-31] MEDS: lisinopriL 20 MG TABLET PO SCH ×2 (09:09→13:55)
[2019-05-31] MEDS ORDERED: *HR* LORazepam 1 MG TABLET PO PRN (09:42)
[2019-05-31] MEDS: *HR* Heparin 5,000 UNIT/ML VIAL IVP PRN ×2 (10:42→22:31)
[2019-05-31] MEDS ORDERED: *HR* OxyCODONE Immed Rel 5 MG TABLET PO PRN (12:34)
[2019-05-31 12:54] LABS: Bilirubin,Urine Negative (Negative); Blood,Urine Negative (Negative); Clarity,Urine Clear (Clear); Color,Urine Yellow (Yellow); Glucose,Urine (UA) Normal (Normal); Ketones,Urine Negative (Negative); Leukocyte Esterase,Urine Negative (Negative); Nitrite,Urine Negative (Negative); Protein,Urine 30 mg/dL (Neg-Trace); Specific Gravity,Urine 1.019 (1.010-1.025); Urobilinogen,Urine Normal (Normal)
[2019-05-31 12:56] LABS: Bacteria,Urine None Seen per hpf (None-Few); Hyaline Casts,Urine None Seen per lpf (None-Few); RBC,Urine 0-3 per hpf (0-3); Squamous Epithelial Cell,Urine Moderate per lpf (None-Few); WBC,Urine 0-3 per hpf (0-3)
[2019-06-01] MEDS: Heparin 25,000 UNIT/250 ML D5W 25,000 UNIT/250 ML IV.SOLN IVC SCH (01:21)
[2019-06-01 04:16] LABS: Hemoglobin 10.4 g/dL (11.5-15.4); Mean Corpuscular HGB Conc 31.5 g/dL (31.6-35.5); Mean Corpuscular Hemoglobin 31.3 pg (28.0-33.3); Mean Corpuscular Volume 99.4 fL (83.0-100.0); Platelet Count 152 K/mcL (140-400); Red Blood Count 3.32 M/mcL (3.82-4.97); Red Cell Distribution Width 13.3 % (11.5-14.5); White Blood Count 5.2 K/mcL (4.3-11.1)
[2019-06-01 06:27] LABS: Calcium 9.1 mg/dL (8.6-10.3); Potassium 4.7 mEq/L (3.5-5.1)
[2019-06-01 06:59] VITALS: BP 157/83
[2019-06-01] MEDS: Pregabalin 50 MG CAPSULE PO SCH (08:10)
[2019-06-01] MEDS: carvediloL 6.25 MG TABLET PO SCH (08:10)
[2019-06-01] MEDS: Insulin LISPRO 300 UNITS/3 ML VIAL SQ SCH (08:12)
[2019-06-01] MEDS ORDERED: lisinopriL 20 MG TABLET PO SCH (12:00)
== END 2019-06-01 10:14 | disposition home or self-care (01) ==
LOC: 3BNU 22:27 → EMEROOARM 22:27 → 3BNU 05-31 01:14
PROVIDERS: ADMIT Internal Medicine; ATTEND Internal Medicine